=== PATIENT | male | born 1940 | race Caucasian/White ===

== ENCOUNTER 2020-12-17 08:56 | Inpatient (IN) | payer OTHER ==
--- OUTSIDE RECORDS SUMMARY | 2020-12-17 09:02 | XMS REPORT | Continuity of Care Document ---
:1940 Author Organization [facility] t Address [address] [place] [address] Care Team Providers Name Role Phone Unavailable Unavailable Unavailable Problems This patient has no known problems. Allergies, Adverse Reactions, Alerts This patient has no known allergies or adverse reactions. Medications Ordered Filled Start Stop Current Ordering Indication Dosage Frequency Signature Comments Components Source Medication Medication Date Date Medication? Clinician (SIG) Name Name Finasteride Finasteride 2019-0 2019- No Teodoro [address] [facility] Cyclobenzap Cyclobenzap Yes Teodoro [address] [facility] rine HCl rine HCl Lerner as needed [facility] Farxiga Farxiga Yes Teodoro [address] [facility] Simvastatin Simvastatin Yes Teodoro [address] [facility] in the [facility] evening [facility] Avalide Avalide Yes Teodoro [address] [facility] Norvasc Norvasc Yes Teodoro [address] [facility] Allopurinol Allopurinol Yes Teodoro TAKE [address] [facility]ner TABLET BY [facility]TH [facility] EVERY DAY. [facility] Tradjenta Tradjenta Yes Teodoro TAKE [address] [facility] TABLET BY [facility] EVERY DAY l [facility] Gabapentin Gabapentin Yes Teodoro [address] [facility] Metformin Metformin Yes Teodoro TAKE [address] HCl HCl [facility]ner TABLET BY [facility] TWICE A l DAY WITH Outpati FOOD ent Clinics Zolpidem Zolpidem Yes Teodoro [address] Tartrate Tartrate [facility] at bedtime [facility] as needed [facility] Metoprolol Metoprolol Yes Teodoro [address] [facility] Tartrate Tartrate [facility]ner with food [facility] Finasteride Finasteride Yes Teodoro [address] [facility] Allopurinol Allopurinol Yes Teodoro TAKE [address] [facility]ner TABLET BY [facility] EVERY DAY l [facility] Metformin Metformin Yes Teodoro [address] [facility] HCl HCl [facility] with meals [facility] Procedures This patient has no known procedures. Encounters Start End Encounter Admission Attending Care Care Encounter Source Date/Time Date/Time Type Type Clinicians Facility Department ID 2020-11-18 2020-11-18 Outpatient [facility] [id number] [facility] 2020-08-20 2020-08-20 Outpatient [facility] [id number] [facility] 2020-07-17 2020-07-17 [facility] [id number] [facility] 2020-05-20 2020-05-20 [facility] [id number] [facility] 2020-05-20 2020-05-20 [facility] [id number] [facility] 2020-02-17 2020-02-17 [facility] [id number] [facility] 14:00:00 14:00:00 Ship It Bag Check [facility] 2020-01-10 2020-01-10 [facility] [id number] [facility] 13:15:00 13:15:00 t Specialty/U [facility] - Specialty rology [facility]rology [facility] l Clinic Outpati ent Clinics 2019-11-18 2019-11-18 [facility] [id number] [facility] 14:00:00 14:00:00 t [facility] Medicine Outpati ent Clinics 2019-08-28 2019-08-28 [facility] [id number] [facility] 14:14:00 14:14:00 t Specialty/U Ying kes - Specialty rology [facility] /Urology Clinic l Clinic Outpati ent Clinics 2019-08-16 2019-08-16 [facility] [id number] [facility] 10:45:00 10:45:00 t [employer] [facility] Out[facility] Clin[facility] 2019-08-09 2019-08-09 [facility] [id number] [facility] 08:11:00 08:11:00 t [employer] [facility] 2019-07-11 2019-07-11 [facility] [id number] [facility] 13:15:00 13:15:00 t Specialty/U Ying kes - Specialty rology [facility] /Urology Clinic l Clinic Outpati ent Clinics 2019-05-15 2019-05-15 [facility] [id number] 14:30:00 14:30:00 t [employer] [facility] 2019 2019 [facility] [id number] [facility] 16:01:00 16:01:00 t Specialty/U Ying kes - Specialty rology [facility] /Urology Clinic l Clinic Outpati ent Clinics 2019-02-12 2019-02-12 [facility] [id number] [facility] 14:15:00 14:15:00 t [employer] [facility] Out[facility] Clin[facility] 2019-01-16 2019-01-16 [facility] [id number] 10[facility]30:00 10:30:00 t Specialty/U Ying kes - Specialty rology Mem[facility] a /Urology Clinic l Clinic Outpati ent Clinics 2019-01-09 2019-01-09 [facility] [id number] [address] 09:46:00 09:46:00 t [employer] [facility] Outpati ent Clinics 2018-11-20 2018-11-20 [facility] [id number] [facility] 14:47:00 14:47:00 t Specialty/U Ying kes - Specialty rology Memori a /Urology Clinic l Clinic Outpati ent Clinics 2018-11-13 2018-11-13 [facility] [id number] [facility] 13:30:00 13:30:00 t [employer] [facility] Outpati ent Clinics 2018-10-23 2018-10-23 [facility] [id number] 11:30:00 11:30:00 t Specialty/U Ying kes - Specialty rology Memori a /Urology Clinic l Clinic Outpati ent Clinics 2018-10-02 2018-10-02 [facility] [id number] [address] 09:19:00 09:19:00 t Specialty/U Ying kes - Specialty rology Memori a /Urology Clinic l Clinic Outpati ent Clinics 2018-09-21 2018-09-21 [facility] [id number] 12:42:00 12:42:00 t [employer] [facility] Outpati ent Clinics 2018-08-23 2018-08-23 [facility] [id number] [facility] 11:00:00 11:00:00 t Specialty/U Ying kes - Specialty rology Memori a /Urology Clinic l Clinic Outpati ent Clinics 2018-08-16 2018-08-16 [facility] [id number] 14:00:00 14:00:00 t [employer] [facility] Outpati ent Clinics 2018-05-16 2018-05-16 [facility] [id number] 14:45:00 14:45:00 t [employer] [facility] Out[facility] Clin[facility] 2018-03-15 2018-03-15 [facility] [id number] 14:45:00 14:45:00 t [email or web address] s - Drive [facility] Out[facility] Clin[facility] 2018-01-22 2018-01-22 [facility] [id number] 14:30:00 14:30:00 t [employer] s - Drive [facility] Clin[facility] 2017-11-14 2017-11-14 [facility] [id number] 14:07:00 14:07:00 t [employer] s - Drive [facility] Out[facility] Clin[facility] 2017-11-09 2017-11-09 [facility] [id number] 16:11:00 16:11:00 t [employer] s - [employer]CK[employer] [facility] Out[facility] Clin[facility] 2017-11-06 2017-11-06 [facility] [id number] 09:26:00 09:26:00 t [employer] s - Drive [facility] 2017-10-25 2017-10-25 [facility] [id number] 13:30:00 13:30:00 t [employer] s - Drive [facility] Results This patient has no known results.
--- NOTE | 2020-12-17 10:23 | RAD REPORT ---
EXAM DESCRIPTION: Salvador Pa And Lat (2 Views)12/17/2020 10:14 am CLINICAL HISTORY: Shortness of breath COMPARISON: 2010 FINDINGS: Moderate opacities mid to lower left lung. Mild to moderate opacities right lung Heart is normal size IMPRESSION: Bilateral pulmonary opacities probably pneumonia
[2020-12-17] MEDS ORDERED: Levofloxacin 750mg IV 750 MG/150 ML BAG IV ONE (11:05)
[2020-12-17 11:24] LABS: Absolute Lymphocytes (CBC) 0.7 K/uL (0.7-4.9); Basophils % 0.3 % (0-1.3); Lymphocytes % 5.7 % (15.3-44.8); MPV 9.2 fL (7.6-11.3); RBC Red Blood Cell Count 5.54 M/uL (4.33-5.43)
[2020-12-17 11:43] LABS: Potassium 3.5 mmol/L (3.5-5.1); Troponin (Emerg Dept Use Only) 0.04 ng/mL (0.0-0.045)
--- NOTE | 2020-12-17 12:52 | EDPHYS ---
Physician Documentation [facility] Name: Willem Ochoa Age: 80 yrs Sex: Male : 1940 Arrival Date: 12/17/2020 Time: 08:59 Bed 27 Private MD: Justina Lernerh ED Physician Jamar Fields HPI: 12/17 10:59 This 80 yrs old Male presents to ER via Wheelchair with complaints of rn Shortness Of Breath. 10:59 The patient has shortness of breath at rest, with light activity. Onset: The rn symptoms/episode began/occurred 2 day(s) ago. Duration: The symptoms are intermittent. The patient's shortness of breath is aggravated by nothing, is alleviated by nothing. Severity of symptoms: At their worst the symptoms were mild in the emergency department the symptoms are unchanged. The patient has not experienced similar symptoms in the past. The patient has been recently seen by a physician:. Sent by Dr. Loo, was going to have EGD done, noted to be hypoxic, 88% on RA, patient reports generalized weakness, fatigue, and mild sob. Sister COVID + and was around her on december 05, but tested neg for COVID prior to procedure. + clear/white sputum. NO hemoptysis. . Historical: - Allergies: 09:04 PENICILLINS; aa5 - PMHx: 09:04 Hypertension; Diabetes - NIDDM; aa5 - PSHx: 09:04 Heart stents; aa5 - Immunization history:: Adult Immunizations unknown. - Social history:: Smoking status: Patient denies any tobacco usage or history of. - Family history:: not pertinent. - Hospitalizations: : No recent hospitalization is reported. ROS: 10:59 Constitutional: Negative for fever, chills, and weight loss, Eyes: Negative for injury, rn pain, redness, and discharge, Neck: Negative for injury, pain, and swelling, Cardiovascular: Negative for chest pain, palpitations, and edema, Respiratory: Negative for wheezing, and pleuritic chest pain Abdomen/GI: Negative for abdominal pain, nausea, vomiting, diarrhea, and constipation, Back: Negative for injury and pain, : Negative for injury, bleeding, discharge, and swelling, MS/Extremity: Negative for injury and deformity, Skin: Negative for injury, rash, and discoloration, Neuro: Negative for headache, numbness, tingling, and seizure. Exam: 10:59 Constitutional: This is a well developed, well nourished patient who is awake, alert, rn and in no acute distress. Head/Face: Normocephalic, atraumatic. Eyes: Periorbital areas with no swelling, redness, or edema. ENT: No stridor Cardiovascular: Regular rate and rhythm. No pulse deficits. Respiratory: Mild tachypnea, no retractions Abdomen/GI: soft, non-tender Skin: Warm, dry MS/ Extremity: Pulses equal, no cyanosis. Neurovascular intact. Full, normal range of motion. Equal circumference. Neuro: Awake and alert, GCS 15 Vital Signs: 09:01 BP 122 / 66; Pulse 88; Resp 18 S; Temp 98.9(O); Pulse Ox 92% ; Weight 83.91 kg (R); aa5 Height 5 ft. 10 in. (177.80 cm) (R); Pain 0/10; 09:07 Pulse Ox 2 lpm NC; aa5 11:00 BP 127 / 65; Pulse 88; Resp 23; Pulse Ox 90% 3 lpm ; jl7 11:45 BP 125 / 69; Pulse 88; Resp 25 S; Pulse Ox 94% on 3 lpm NC; jl7 12:48 BP 125 / 71; Pulse 119; Resp 27; Pulse Ox 94% on 3 lpm NC; zb 13:15 BP 108 / 72; Pulse 90; Resp 28; Pulse Ox 92% on 3 lpm NC; zb 14:00 BP 131 / 73; Pulse 89; Resp 32; Pulse Ox 91% on 5 lpm NC; zb 15:30 BP 139 / 68; Pulse 97; Resp 32; Pulse Ox 90% on 5 lpm NC; zb 16:15 BP 132 / 76; Pulse 102; Resp 30; Pulse Ox 89% on 5 lpm NC; zb 17:22 BP 139 / 90; Pulse 102; Resp 33; Pulse Ox 89% on 7 lpm NC; zb 17:40 Pulse Ox 94% on 50% Venturi mask; zb 09:01 Body Mass Index 26.54 (83.91 kg, 177.80 cm) aa5 MDM: 10:36 Patient medically screened. rn 12:49 Differential diagnosis: Bronchitis Myocardial Infarction pneumonia, Pneumothorax rn pulmonary edema, Sepsis. Data reviewed: vital signs, nurses notes, lab test result(s), EKG, radiologic studies, plain films, and as a result, I will admit patient. Counseling: I had a detailed discussion with the patient and/or guardian regarding: the historical points, exam findings, and any diagnostic results supporting the discharge/admit diagnosis, lab results, radiology results, the need for further work-up and treatment in the hospital. Response to treatment: the patient's symptoms have mildly improved after treatment, and as a result, I will admit patient. Admission orders: after a detailed discussion of the patient's condition and case, the admit orders are written by me. ED course: Pt with bilateral pneumonia, and oxygen requirement, will admit to hospitalist service with IV abx. COVID pending.. 12/17 10:39 Order name: Blood Culture Adult (2) 12/17 10:39 Order name: BMP; Complete Time: 12:41 12/17 10:39 Order name: CBC with Diff; Complete Time: 12:41 12/17 10:39 Order name: NT PRO-BNP; Complete Time: 12:41 12/17 10:39 Order name: Troponin (emerg Dept Use Only); Complete Time: 12:41 12/17 10:39 Order name: Lactate; Complete Time: 12:41 12/17 10:39 Order name: Blood Culture [facility] 12/17 13:44 Order name: Comprehensive Metabolic Panel [facility] 12/17 13:44 Order name: Comprehensive Metabolic Panel [facility] 12/17 13:44 Order name: CBC with Automated Diff [facility] 12/17 13:44 Order name: CBC with Automated Diff [facility] 12/17 13:47 Order name: C-Reactive Protein [facility] 12/17 09:39 Order name: XRAY Chest Pa And Lat (2 Views); Complete Time: 10:37 12/17 10:39 Order name: EKG; Complete Time: 10:40 12/17 13:47 Order name: D-Dimer [facility] 12/17 13:47 Order name: Ferritin [facility] 12/17 13:59 Order name: SARS-COV-2 RT PCR; Complete Time: 14:01 [facility] 12/17 16:06 Order name: Lactate Sepsis 2 HR Follow-up [facility] 12/17 16:43 Order name: AST/SGOT [facility] 12/17 16:43 Order name: ALT/SGPT [facility] 12/17 19:05 Order name: Glucose, Ancillary Testing [facility] 12/18 08:19 Order name: CBC Smear Scan [facility] 12/18 12:08 Order name: Glucose, Ancillary Testing EDIN 12/18 12:13 Order name: Glucose, Ancillary Testing EDIN 12/18 12:51 Order name: US EDIN 12/18 17:12 Order name: Glucose, Ancillary Testing EDIN 12/17 10:39 Order name: Cardiac monitoring; Complete Time: 11:30 rn 12/17 10:39 Order name: EKG - Nurse/Tech; Complete Time: : rn 12/17 10:39 Order name: IV Saline Lock; Complete Time: : rn 12/17 10:39 Order name: Labs collected and sent; Complete Time: : rn 12/17 10:39 Order name: O2 Per Protocol; Complete Time: : rn 12/17 10:39 Order name: O2 Sat Monitoring; Complete Time: : rn 12/17 13:44 Order name: CONS Physician Consult EDIN 12/17 13:44 Order name: Consistent Carb (ADA) 1800 Shaggy EDIN Administered Medications: 11:30 Drug: LevaQUIN (levofloxacin) 750 mg Volume: 150 ml; Route: IVPB; Infused Over: 90 jl7 mins; Site: left hand; 13:00 Follow up: Response: No adverse reaction; IV Status: Completed infusion jl7 15:18 Drug: SOLU-Medrol (methylPrednisoLONE) 125 mg Route: IVP; Site: right antecubital; zb 17:21 Follow up: Response: No adverse reaction zb Disposition: 12/17/20 12:51 Hospitalization ordered by Familia Pacheco for Inpatient Admission. Preliminary diagnosis are Pneumonia, unspecified organism - Bilateral, COVID, Hypoxemia, Coronavirus infection, unspecified. - Bed requested for Intensive Care Unit. - Status is Inpatient Admission. jl7 - Condition is Stable. - Problem is new. - Symptoms have improved. Signatures: Dispatcher [employer] EDIN Lily Samuels RN RN dw Nieto, Roman, MD MD rn Calderon, Audri, RN RN aa5 Chava Arnold RN RN jl7 Hobbs, Yissel mt Brown, Berta, RN RN zb Corrections: (The following items were deleted from the chart) 13:03 10:40 CORONAVIRUS+MR.LAB.BRZ ordered. EDMS EDMS 14:08 12:51 Hospitalization Ordered by Familia Pacheco MD for Inpatient Admission. Preliminary mt diagnosis is Pneumonia, unspecified organism - Bilateral; Hypoxemia. Bed requested for Telemetry/MedSurg (Inpatient). Status is Inpatient Admission. Condition is Stable. Problem is new. Symptoms have improved. rn 14: 14:08 12/17/2020 12:51 Hospitalization Ordered by Familia Pacheco MD for Inpatient chemist internship. Preliminary diagnosis is Pneumonia, unspecified organism - Bilateral; Hypoxemia. Bed requested for [facility] ER HOLD. Status is Inpatient Admission. Condition is Stable. Problem is new. Symptoms have improved. mt 12/18 16:17 12/17 14:09 12/17/2020 12:51 Hospitalization Ordered by Familia Pacheco MD for Inpatient dw Admission. Preliminary diagnosis is Pneumonia, unspecified organism - Bilateral, COVID; Hypoxemia; Coronavirus infection, unspecified. Bed requested for Telemetry/MedSurg (Inpatient). Status is Inpatient Admission. Condition is Stable. Problem is new. Symptoms have improved. rn 12/18 17:19 16:17 12/17/2020 12:51 Hospitalization Ordered by Familia Pacheco MD for Inpatient jl7 Admission. Preliminary diagnosis is Pneumonia, unspecified organism - Bilateral, COVID; Hypoxemia; Coronavirus infection, unspecified. Bed requested for Intensive Care Unit. Status is Inpatient Admission. Condition is Stable. Problem is new. Symptoms have improved. dw
--- NOTE | 2020-12-17 12:52 | ER ---
Nurse's Notes [facility] Name: Willem Ochoa Age: 80 yrs Sex: Male : 1940 Arrival Date: 12/17/2020 Time: 08:59 Bed 27 Private MD: Teodoro Lerner Diagnosis: Pneumonia, unspecified organism-Bilateral, COVID;Hypoxemia;Coronavirus infection, unspecified Presentation: 12/17 09:01 Chief complaint: Patient states: "I was supposed to have a procedure for my esophagus aa5 this morning but they said they couldn't do it because my oxygen was low, they said it was like 90%". Pt states "I feel a little short of breath". Respirations are even and unlabored. Ebola Screen: Patient negative for fever greater than or equal to 101.5 degrees Fahrenheit, and additional compatible Ebola Virus Disease symptoms. Onset of symptoms was December 17, 2020. 09:01 Method Of Arrival: Wheelchair aa5 09:01 Coronavirus screen: Client denies travel out of the [place] in the last 14 days. aa5 09:01 Initial Sepsis Screen: Does the patient meet any 2 criteria? No. Patient's initial aa5 sepsis screen is negative. Does the patient have a suspected source of infection? No. Patient's initial sepsis screen is negative. Risk Assessment: Do you want to hurt yourself or someone else? Patient reports no desire to harm self or others. 09:01 Acuity: BENITA 3 aa5 Historical: - Allergies: 09:04 PENICILLINS; aa5 - PMHx: 09:04 Hypertension; Diabetes - NIDDM; aa5 - PSHx: 09:04 Heart stents; aa5 - Immunization history:: Adult Immunizations unknown. - Social history:: Smoking status: Patient denies any tobacco usage or history of. - Family history:: not pertinent. - Hospitalizations: : No recent hospitalization is reported. Screenin:00 Abuse screen: Denies threats or abuse. Denies injuries from another. Nutritional jl7 screening: No deficits noted. Tuberculosis screening: No symptoms or risk factors identified. Fall Risk IV access (20 points). Total Noriega Fall Scale indicates No Risk (0-24 pts). Assessment: 11:00 General: Appears in no apparent distress. uncomfortable, Behavior is calm, cooperative, jl7 appropriate for age. Pain: Denies pain. Neuro: Level of Consciousness is awake, alert, obeys commands, Oriented to person, place, time, situation. Cardiovascular: Denies chest pain, Rhythm is sinus rhythm with multifocal PVCs. Respiratory: Airway is patent Respiratory effort is even, labored, Respiratory pattern is symmetrical, tachypnea Breath sounds are clear bilaterally. Derm: Skin is pink, warm \\T\\ dry. 12:46 Reassessment: ECP at bedside discussing care with provider. zb 17:25 Reassessment: Patient appears in no apparent distress at this time. Patient and/or zb family updated on plan of care and expected duration. Pain level reassessed. Notified ECP patient stating 88-89 on 7L NC. patient denies worsening of SOB. RT called. 17:40 Reassessment: RT placed patient on ventri mask 50% oxygen. zb 19:50 Reassessment: Sondra (daughter) [phone]. ea Vital Signs: 09:01 BP 122 / 66; Pulse 88; Resp 18 S; Temp 98.9(O); Pulse Ox 92% ; Weight 83.91 kg (R); aa5 Height 5 ft. 10 in. (177.80 cm) (R); Pain 0/10; 09:07 Pulse Ox 2 lpm NC; aa5 11:00 BP 127 / 65; Pulse 88; Resp 23; Pulse Ox 90% 3 lpm ; jl7 11:45 BP 125 / 69; Pulse 88; Resp 25 S; Pulse Ox 94% on 3 lpm NC; jl7 12:48 BP 125 / 71; Pulse 119; Resp 27; Pulse Ox 94% on 3 lpm NC; zb 13:15 BP 108 / 72; Pulse 90; Resp 28; Pulse Ox 92% on 3 lpm NC; zb 14:00 BP 131 / 73; Pulse 89; Resp 32; Pulse Ox 91% on 5 lpm NC; zb 15:30 BP 139 / 68; Pulse 97; Resp 32; Pulse Ox 90% on 5 lpm NC; zb 16:15 BP 132 / 76; Pulse 102; Resp 30; Pulse Ox 89% on 5 lpm NC; zb 17:22 BP 139 / 90; Pulse 102; Resp 33; Pulse Ox 89% on 7 lpm NC; zb 17:40 Pulse Ox 94% on 50% Venturi mask; zb 09:01 Body Mass Index 26.54 (83.91 kg, 177.80 cm) aa5 ED Course: 08:59 Patient arrived in ED. as 09:00 Teodoro Lerner DO is Private Physician. as 09:01 Arm band placed on. aa5 09:07 Triage completed. aa5 10:11 XRAY Chest Pa And Lat (2 Views) In Process Unspecified. EDMS 10:36 Jamar Fields MD is Attending Physician. rn 10:40 Chava Arnold RN is Primary Nurse. jl7 11:00 Patient has correct armband on for positive identification. Placed in gown. Bed in low jl7 position. Call light in reach. Side rails up X 1. quality assurance monitor body on. Pulse ox on. NIBP on. Warm blanket given. 11:08 Inserted saline lock: 20 gauge in right antecubital area, using aseptic technique. jl7 Blood collected. 11:08 Initial lab(s) drawn, by me, sent to lab. First set of blood cultures drawn by me, EKG jl7 done, by ED staff, reviewed by Jamar Fields MD COVID swab sent to lab. 11:24 Second set of blood cultures drawn by me. Inserted saline lock: 22 gauge in left hand, jl7 using aseptic technique. Blood collected. 12:35 Primary Nurse role handed off by Chava Arnold RN zb 12:35 Berta Quigley RN is Primary Nurse. zb 12:50 Familia Pacheco MD is Hospitalizing Provider. rn 12/18 14:07 No provider procedures requiring assistance completed. Patient admitted, IV remains in jl7 place. intact, No redness/swelling at site. Administered Medications: 12/17 11:30 Drug: LevaQUIN (levofloxacin) 750 mg Volume: 150 ml; Route: IVPB; Infused Over: 90 jl7 mins; Site: left hand; 13:00 Follow up: Response: No adverse reaction; IV Status: Completed infusion jl7 15:18 Drug: SOLU-Medrol (methylPrednisoLONE) 125 mg Route: IVP; Site: right antecubital; zb 17:21 Follow up: Response: No adverse reaction zb Outcome: 12:51 Decision to Hospitalize by Provider. rn 17:33 Admitted to ER Hold. Please see [facility] for further documentation. zb 12/18 14:13 Condition: stable jl7 17:19 Patient left the ED. jl7 Signatures: Dispatcher [employer] Evonne Cantu Roman, MD MD rn Calderon, Tami, RN RN [id number] Chava Arnold RN NATHANIEL jl7 Marguerite Keita RN Berta Marti ea, RN RN zb Corrections: (The following items were deleted from the chart) 13:00 Response: No adverse reaction; IV Status: Completed infusion jl7 jl7
--- NOTE | 2020-12-17 13:31 | P.HP ---
Certification for Inpatient Patient admitted to: Inpatient With expected LOS: >2 Midnights Patient will require the following post-hospital care: None Practitioner: I am a practitioner with admitting privileges, knowledge of patient current condition, hospital course, and medical plan of care. Services: Services provided to patient in accordance with Admission requirements found in Title 42 Section 412.3 of the Code of Federal Regulations Patient History Date of Service: 12/17/20 Reason for admission: Hypoxia History of Present Illness: 80 yo male with past medical history hypertension, diabetes, CAD status post stents who was supposed to get an EGD done today by Dr. Loo found to have hypoxia on clinical examination and was sent over here for further management. The patient has cough with mucoid expectoration associated with shortness of breath which has been going on for the last 2-3 days. He had COVID test done on Monday which was negative, he was found to be hypoxic at 88% in room air .. Patient states that he has been feeling generalized weakness and has an episode of diarrhea 2 days back with mild shortness of breath. Had a COVID 19 exposure with sister who on December 05 Denies any fever or chills no nausea vomiting or diarrhea Patient was assessed in the ER and his vital signs were BP 122 / 66; Pulse 88; Resp 18 S; Temp 98.9(O); Pulse Ox 92% ; Weight 83.91 kg and was placed on oxygen support and was admitted for multifocal pneumonia. Allergies Penicillins Allergy (Verified 06/21/17 08:35) Rash Home medications list reviewed: Yes Home Medications: Amlodipine Besylate 5 mg PO [id number] 06/21/17 Aspirin [Aspirin EC 81 MG] 81 mg PO DAILY 06/21/17 Empagliflozin [Jardiance] 25 mg PO DAILY 06/21/17 Exenatide Microspheres [Bydureon Pen] 2 mg SQ EVERY 7TH DAY 06/21/17 Finasteride [Proscar*] 5 mg PO DAILY 06/21/17 Gabapentin [Gralise] 300 mg PO DAILY 06/21/17 Irbesartan/Hydrochlorothiazide [Avalide 300-12.5 mg Tablet] 1 each PO [id number] 06/21/17 Linagliptin [Tradjenta] 5 mg PO DAILY 06/21/17 Metformin HCl [Glucophage*] 500 mg PO [id number] 06/21/17 Metoprolol Succinate [Toprol Xl] 100 mg PO [id number] 06/21/17 Simvastatin 40 mg PO DAILY 06/21/17 Tramadol HCl [Ultram] 50 mg PO Q6HP PRN 06/21/17 Zolpidem Tartrate [Ambien*] 10 mg PO BEDTIME 06/21/17 allopurinoL [Zyloprim*] 300 mg PO DAILY 06/21/17 - Past Medical/Surgical History Past Medical History: Reviewed- Non-Contributory -: Diabetes -: Hypertension -: CAD Past Surgical History: Reviewed- Non-Contributory -: Stents - Family History Family History: Reviewed- Non-Contributory - Social History Smoking Status: Never smoker Review of Systems 10-point ROS is otherwise unremarkable General: Weakness, Malaise Respiratory: Cough, Shortness of Breath Gastrointestinal: Diarrhea Physical Examination - Vital Signs Temperature: 98.2 F Blood Pressure: 122/68 Pulse: 88 Respirations: 18 Pulse Ox (%): 92 - Physical Exam General: Alert, In no apparent distress, Oriented x3 HEENT: Atraumatic, Normocephalic Neck: Supple, 2+ carotid pulse no bruit Respiratory: Diminished, Crackles/rales Cardiovascular: Regular rate/rhythm, Normal S1 S2 Capillary refill: <2 Seconds Gastrointestinal: Soft and benign, W/out hepatosplenomegaly Musculoskeletal: No clubbing, No swelling Integumentary: No rashes Neurological: Normal speech, Normal strength at 5/5 x4 extr, Other (Alert Awake ) Lymphatics: No axilla or inguinal lymphadenopathy - Studies Laboratory Data (last 24 hrs) 12/17/20 11:08: WBC 12.30 H, Hgb 16.6, Hct 49.0, Plt Count 202 12/17/20 11:08: Sodium 136, Potassium 3.5, BUN 59 H, Creatinine 2.24 H, Glucose 167 H Imagings Data: Xray Chest : Bilateral pulmonary opacities probably pneumonia Assessment and Plan - Problems (Diagnosis) (1) Acute respiratory failure with hypoxia Current Visit: Yes Status: Acute Plan: Oxygen supplementation Will monitor closely under telemetry. Trying to wean down oxygen requirement will get a D-dimer and CRP and inflammatory markers Pulmonology consulted Start on steroids Bronchodilators COVID Test pending (2) Bilateral pneumonia Current Visit: Yes Status: Acute Plan: Monitor under telemetry will start on IV antibiotics antitussives COVID Test is pending Will get cultures (3) Acute kidney injury Current Visit: Yes Status: Acute Plan: Renal parameters monitored Will consult nephrology Electrolytes monitored and replaced accordingly (4) Diabetes Current Visit: Yes Status: Chronic Plan: Start on insulin sliding scale Will get an A1c Accu-Chek q. a.c. and HS Qualifiers: Diabetes mellitus complication status: with kidney complications (5) Hypertension Current Visit: Yes Status: Chronic Plan: Continue home medications and titrate as needed Monitor closely - Plan Leukocytosis Lactic acidosis history of CAD status post stents Continue home medications Trend lactic acid levels continue antibiotics GI/DVT prophylaxis Discharge Plan: Home Plan to discharge in: 48 Hours - Advance Directives Does patient have a Living Will: Yes Does patient have a Durable POA for Healthcare: Yes - Code Status/Comfort Care Code Status: Full Code Time Spent Managing Pts Care (In Minutes): 42
[2020-12-17] MEDS ORDERED: ACETAMINOPHEN 500 MG TAB PO PRN (13:40)
[2020-12-17] MEDS ORDERED: ONDANSETRON 4 MG/2 ML VIAL IV PRN (13:40)
[2020-12-17] MEDS ORDERED: ALBUTEROL 2.5 MG/3 ML NEB SOL NEB PRN (13:40)
[2020-12-17] MEDS: dexAMETHasone 10 MG/ML VIAL IV SCH (13:45)
[2020-12-17] MEDS ORDERED: METHYLPREDNISOLONE 125 MG INJ ONE (15:23)
[2020-12-17] MEDS: INSULIN -REGULAR HUMAN 50 UNIT/0.5 ML ML SQ SCH ×3 (16:30→21:00)
[2020-12-17 16:39] LABS: Ferritin 1037.2 ng/mL (26-388)
[2020-12-17 16:43] LABS: ALT/SGPT 37 U/L (12-78); AST/SGOT 62 U/L (15-37)
[2020-12-17] MEDS ORDERED: REMDESIVIR (EUA) 200 MG in NA CHLORIDE 0.9% 250 ML IV ONE (18:00)
[2020-12-17] MEDS ORDERED: dexAMETHasone 10 MG/ML VIAL ONE (19:21)
[2020-12-17] MEDS ORDERED: INSULIN -REGULAR HUMAN 50 UNIT/0.5 ML ML ONE (19:22)
[2020-12-18] MEDS: FAMOTIDINE 20 MG TAB PO SCH ×3 (00:15→20:46)
[2020-12-18] MEDS ORDERED: FAMOTIDINE 20 MG/2 ML VIAL IV ONE (01:13)
[2020-12-18] MEDS ORDERED: METOPROLOL TAR 25 MG TAB PO ONE (02:28)
[2020-12-18] MEDS ORDERED: METOPROLOL TAR 25 MG TAB ONE (02:58)
[2020-12-18 06:56] LABS: Absolute Lymphocytes (CBC) 0.5 K/uL (0.7-4.9); Basophils % 0.1 % (0-1.3); Hematocrit 45.9 % (39.6-49.0); Lymphocytes % 3.8 % (15.3-44.8); MPV 9.2 fL (7.6-11.3); RBC Red Blood Cell Count 5.19 M/uL (4.33-5.43)
[2020-12-18] MEDS: INSULIN -REGULAR HUMAN 50 UNIT/0.5 ML ML SQ SCH ×4 (07:30→20:47)
[2020-12-18 07:41] LABS: Albumin 2.4 g/dL (3.4-5.0); Bilirubin Total 0.7 mg/dL (0.2-1.0); Potassium 3.3 mmol/L (3.5-5.1); Protein, Total 7.2 g/dL (6.4-8.2)
[2020-12-18 08:19] LABS: Blood Morphology Comment NOT SEEN (NOT SEEN); Platelet Estimate ADEQ; White Blood Cell Scan OK (OK)
[2020-12-18] MEDS ORDERED: METOPROLOL XL 50 MG TAB PO ONE ×2 (08:47→08:50)
[2020-12-18] MEDS ORDERED: FAMOTIDINE 20 MG TAB ONE (08:47)
[2020-12-18] MEDS ORDERED: dexAMETHasone 10 MG/ML VIAL ONE (08:47)
[2020-12-18] MEDS: dexAMETHasone 10 MG/ML VIAL IV SCH (08:48)
[2020-12-18] MEDS ORDERED: ENOXAPARIN 30 MG/0.3 ML SQ ONE (08:48)
[2020-12-18] MEDS ORDERED: INSULIN -REGULAR HUMAN 50 UNIT/0.5 ML ML ONE ×3 (08:48→16:49)
[2020-12-18] MEDS ORDERED: Levofloxacin500mg IV 500 MG/100 ML BAG IV ONE (08:49)
[2020-12-18] MEDS: REMDESIVIR (EUA) 100 MG in NA CHLORIDE 0.9% 250 ML IV SCH (09:00)
[2020-12-18] MEDS ORDERED: Levofloxacin500mg IV 500 MG/100 ML BAG IV SCH (09:00)
[2020-12-18] MEDS ORDERED: PNEUMOCOCCAL VACCINE 0.5 ML IMVAC ONE (09:00)
[2020-12-18] MEDS ORDERED: ENOXAPARIN 30 MG/0.3 ML SQ SCH (09:00)
--- NOTE | 2020-12-18 11:26 | P.CNS ---
Date of Consult: 12/18/20 Reason for Consult: Respiratory failure from baig virus Chief Complaint: Hypoxia History of Present Illness: Patient is 80 years of age multiple medical problems including coronary artery disease as found to be hypoxic sent to OR and for diagnosed with baig virus pneumonia currently on high concentrations of oxygen the alert responsive Allergies Penicillins Allergy (Verified 06/21/17 08:35) Rash Home Medications: Amlodipine Besylate 5 mg PO [id number] 06/21/17 Aspirin [Aspirin EC 81 MG] 81 mg PO DAILY 06/21/17 Finasteride [Proscar*] 5 mg PO DAILY 06/21/17 Gabapentin [Gralise] 300 mg PO BID 06/21/17 Linagliptin [Tradjenta] 5 mg PO DAILY 06/21/17 Metformin HCl [Glucophage*] 500 mg PO BIDWM 06/21/17 Metoprolol Succinate [Toprol Xl] 100 mg PO [id number] 06/21/17 Simvastatin 40 mg PO DAILY 06/21/17 Zolpidem Tartrate [Ambien*] 10 mg PO BEDTIME 06/21/17 Allopurinol 100 mg PO DAILY 12/18/20 Valsartan/Hydrochlorothiazide [Valsartan-Hctz 320-12.5 mg Tab] 1 each PO DAILY 12/18/20 - Past Medical/Surgical History -: Diabetes -: Hypertension -: CAD -: Stents Review of Systems General: Weakness Respiratory: Shortness of Breath Physical Examination Temp Pulse Resp BP Pulse Ox 98.7 F 138 H 39 H 101/79 91 12/18/20 08:00 12/18/20 08:50 12/18/20 08:00 12/18/20 08:50 12/18/20 08:00 Laboratory Data (last 24 hrs) 12/17/20 11:08: WBC 12.30 H, Hgb 16.6, Hct 49.0, Plt Count 202 12/17/20 11:08: Sodium 136, Potassium 3.5, BUN 59 H, Creatinine 2.24 H, Glucose 167 H - Problems (1) Acute respiratory failure due to severe acute respiratory syndrome coronavirus 2 (SARS-CoV-2) infection Current Visit: Yes Status: Acute Plan: Patient is 80 years of age admitted with respiratory failure from baig virus he has cut diffuse bilateral interstitial changes oxygenation satisfactory continue to titrate down his O2 renal function is worse start on IV fluids increase the dose of steroids Dc IV antibiotics blood pressure is little low renal ultrasound low-dose aspirin
[2020-12-18] MEDS: NACHLORIDE 0.45% 1,000 ML IV SCH (12:00)
--- NOTE | 2020-12-18 12:50 | RAD REPORT ---
EXAM DESCRIPTION: US - Renal Ultrasound-Complete - 12/18/2020 12:36 pm CLINICAL HISTORY: Renal failure COMPARISON: Abdomen Exam Complete dated 11/14/2018 FINDINGS: The right kidney measures approximately 9.5 x 5.3 cm. The left kidney measures approximat medardo 9.2 x 4.9 cm. Renal cortical thickness and echogenicity are normal. No hydronephrosis or suspicio us renal mass. A 2.8 centimeter exophytic upper pole left renal cyst is present. There are small calc ifications of the parenchyma and carmen of each kidney. These are nonobstructive. No bladder wall thickening or mass. No intraluminal stone or mass. Enlarged lobulated prostate gland is present. IMPRESSION: No hydronephrosis or suspicious renal mass. No gross bladder abnormality seen. Enlarged lobulated prostate gland is present but only partially ev aluated.
[2020-12-18] MEDS ORDERED: NA CHLORIDE 0.9% 0 ML ONE (12:54)
[2020-12-18] MEDS: METHYLPREDNISOLONE 125 MG INJ IV SCH ×2 (14:00→20:46)
[2020-12-18] MEDS ORDERED: METHYLPREDNISOLONE 125 MG INJ ONE (14:48)
[2020-12-18] MEDS ORDERED: NACHLORIDE 0.45% 1,000 ML IV ONE (14:48)
[2020-12-18] MEDS ORDERED: ALBUTEROL 2.5 MG/3 ML NEB SOL NEB PRN (15:00)
[2020-12-18] MEDS: METFORMIN HCL 500 MG TAB PO SCH (18:11)
[2020-12-18] MEDS: GABAPENTIN 300 MG CAP PO SCH (20:46)
[2020-12-18] MEDS: ATORVASTATIN 20 MG TAB PO SCH (20:46)
[2020-12-18] MEDS ORDERED: ZOLPIDEM TARTRATE 10 MG TABLET PO SCH (21:00)
[2020-12-18] MEDS: APIXABAN 5 MG TABLET PO SCH (21:00)
[2020-12-18 22:18] LABS: Urine Appearance CLOUDY (Clear); Urine Bilirubin NEGATIVE (Negative); Urine Blood 1+ (Negative); Urine Color YELLOW (Yellow); Urine Glucose 3+ (Negative); Urine Protein 1+ (Negative); Urine Specific Gravity 1.025 (1.005-1.030)
[2020-12-18 22:58] LABS: Urine Microscopic Reflex ORDER UMIC
[2020-12-18 23:11] LABS: Urine Amorphous Sediment 1+ /HPF (NONE SEEN); Urine Bacteria >50 /HPF (NONE SEEN); Urine Mucus 3+ /HPF (NONE SEEN); Urine Yeast FEW (NONE SEEN)
[2020-12-18 23:12] LABS: Urine Coarse Granular Casts 0-5 /LPF (NONE SEEN)
[2020-12-19] MEDS: NACHLORIDE 0.45% 1,000 ML IV SCH (04:35)
[2020-12-19 05:18] LABS: Absolute Lymphocytes (CBC) 0.5 K/uL (0.7-4.9); Hematocrit 43.8 % (39.6-49.0); Lymphocytes % 2.8 % (15.3-44.8); MPV 9.4 fL (7.6-11.3); RBC Red Blood Cell Count 4.92 M/uL (4.33-5.43)
[2020-12-19 05:58] LABS: Ferritin 1253.7 ng/mL (26-388); Potassium 3.7 mmol/L (3.5-5.1)
[2020-12-19] MEDS ORDERED: METOPROLOL XL 100 MG TAB PO SCH ×2 (06:00)
[2020-12-19] MEDS ORDERED: AMLODIPINE 5 MG TAB PO SCH (06:00)
[2020-12-19] MEDS ORDERED: [UNRECOGNIZED DRUG - OTHER] PO SCH (09:00)
[2020-12-19] MEDS ORDERED: VALSARTAN PO SCH (09:00)
[2020-12-19] MEDS ORDERED: HYDROCHLOROTHIAZIDE PO SCH (09:00)
[2020-12-19] MEDS: Linagliptin [Tradjenta] 5 MG Tablet PO SCH (09:00)
[2020-12-19] MEDS ORDERED: HOME MED 1 EA UNK (Simvastatin [Simvastatin] 40 MG Tablet) PO SCH (09:00)
[2020-12-19] MEDS: APIXABAN 5 MG TABLET PO SCH ×2 (09:13→20:56)
[2020-12-19] MEDS: FAMOTIDINE 20 MG TAB PO SCH ×2 (09:13→21:00)
[2020-12-19] MEDS: INSULIN -REGULAR HUMAN 50 UNIT/0.5 ML ML SQ SCH ×4 (09:13→21:00)
[2020-12-19] MEDS: FINASTERIDE 5 MG TAB PO SCH (09:13)
[2020-12-19] MEDS: GABAPENTIN 300 MG CAP PO SCH (09:13)
[2020-12-19] MEDS: METFORMIN HCL 500 MG TAB PO SCH ×2 (09:13→17:43)
[2020-12-19] MEDS: ASPIRIN EC 81 MG TAB PO SCH (09:13)
[2020-12-19] MEDS: allopurinoL 100 MG TAB PO SCH (09:13)
[2020-12-19] MEDS: METHYLPREDNISOLONE 125 MG INJ IV SCH ×3 (09:14→21:00)
[2020-12-19] MEDS: REMDESIVIR (EUA) 100 MG in NA CHLORIDE 0.9% 250 ML IV SCH (09:15)
[2020-12-19] MEDS ORDERED: METOPROLOL TARTRATE 5 MG/5 ML INJ IV STA (09:23)
[2020-12-19] MEDS ORDERED: METOPROLOL TARTRATE 5 MG/5 ML INJ IV ONE (09:44)
--- NOTE | 2020-12-19 10:33 | P.PN ---
Subjective Date of Service: 12/19/20 Chief Complaint: Respiratory failure Patient's condition is worsening he is now on 100% FiO2 Review of Systems is unable to be obtained Physical Examination - Vital Signs Temperature: 97.4 F Blood Pressure: 125/71 Pulse: 139 Respirations: 24 Pulse Ox (%): 84 Assessment & Plan - Problems (Diagnosis) (1) Acute respiratory failure due to severe acute respiratory syndrome coronavirus 2 (SARS-CoV-2) infection Current Visit: Yes Status: Acute Plan: Respiratory failure patient started on IV Actemra condition is worse renal function no change with IV fluids will Dc IV fluids start tube feeds medications reviewed labs reviewed renal ultrasound no evidence of obstruction enlarged prostate
[2020-12-19] MEDS ORDERED: IVERMECTIN 3 MG TABLET PO ONE (10:37)
[2020-12-19] MEDS ORDERED: TOCILIZUMAB 800 MG in NA CHLORIDE 0.9% 60 ML IV ONE (13:00)
[2020-12-19] MEDS: ASCORBIC ACID 500 MG TABLET PO SCH ×2 (13:25→20:56)
--- NOTE | 2020-12-19 16:05 | RAD REPORT ---
EXAM DESCRIPTION: RAD - Abdomen 1 View (KUB) - 12/19/2020 3:59 pm CLINICAL HISTORY: Dobbhoff placement Pain COMPARISON: No comparisons FINDINGS: Tip of the enteric tube is in the distal stomach.
[2020-12-19] MEDS: METOPROLOL TARTRATE 5 MG/5 ML INJ IV SCH (17:44)
[2020-12-19] MEDS: ATORVASTATIN 20 MG TAB PO SCH (20:56)
[2020-12-19] MEDS: GLUCERNA 1.2 CAL 1,000 ML BOT FT SCH (21:00)
[2020-12-19] MEDS: THIAMINE 200 MG/2 ML INJ IVP SCH (21:00)
--- NOTE | 2020-12-20 01:04 | P.PN ---
Subjective Date of Service: 12/18/20 Patient's respiratory status is not really improving. Patient with bilateral infiltrates. Patient with significant hypoxemia as well. Continue with antiviral therapy. Continue IV steroids. Review of Systems 10-point ROS is otherwise unremarkable Physical Examination - Vital Signs Temperature: 97.1 F Blood Pressure: 119/83 Pulse: 78 Respirations: 30 Pulse Ox (%): 90 - Physical Exam General: Alert, In no apparent distress, Oriented x3 HEENT: Other (Remains on BiPAP) Respiratory: Diminished, Rhonchi/gurgles Cardiovascular: Regular rate/rhythm, Normal S1 S2, No murmurs Gastrointestinal: Normal bowel sounds, Soft and benign, Non-distended, No tenderness Musculoskeletal: No clubbing, No swelling, No tenderness Neurological: Sensation intact, Cranial nerves 3-12 intact - Studies Medications List Reviewed: Yes Assessment & Plan - Problems (Diagnosis) (1) Pneumonia due to COVID-19 virus Current Visit: Yes Status: Acute (2) Acute respiratory failure with hypoxia Current Visit: Yes Status: Acute (3) Diabetes Current Visit: Yes Status: Chronic Qualifiers: Diabetes mellitus complication status: with kidney complications (4) Hypertension Current Visit: Yes Status: Chronic - Plan 1. Continue with IV steroids and antiviral therapy 2. Monitor inflammatory markers 3. Repeat chest x-ray 4. Continue with BiPAP support 5. Pulmonary consultation 6. Continue with albuterol inhaler therapy; also supportive care; may add albuterol nebulizer therapy 7. Monitor LFTs 8. Continue with supportive care 9. GI and DVT prophylaxis Discharge Plan: Home Plan to discharge in: Greater than 2 days - Advance Directives Does patient have a Living Will: No Does patient have a Durable POA for Healthcare: Yes - Code Status/Comfort Care Code Status: Full Code Critical Care: Yes Time Spent Managing PTS Care (In Minutes): 35
--- NOTE | 2020-12-20 01:19 | P.PN ---
Date of Service: 12/19/20 Subjective Patient appears to be doing well and following commands. Patient's clinical symptoms are stable. Still requiring max oxygenation. Otherwise, clinical symptoms are stable. Remdesivir was stopped-renal function improving slowly and liver function is stable. Baseline creatinine is about 1.6. Patient was started on Actemra for COVID-19. Will discuss this with Pulmonary Review of Systems 10-point ROS is otherwise unremarkable Physical Examination - Vital Signs Reviewed - Physical Exam General: Alert, In no apparent distress, Oriented x3 HEENT: Remains with BiPAP mask Respiratory: Diminished, Rhonchi/gurgles Cardiovascular: Regular rate/rhythm, Normal S1 S2, No murmurs Gastrointestinal: Normal bowel sounds, Soft and benign, Non-distended, No tenderness Musculoskeletal: No clubbing, No swelling, No tenderness Neurological: Sensation intact, Cranial nerves 3-12 intact - Studies Medications List Reviewed: Yes Assessment & Plan - Problems (Diagnosis) (1) Pneumonia due to COVID-19 virus Current Visit: Yes Status: Acute (2) Acute respiratory failure with hypoxia Current Visit: Yes Status: Acute (3) Diabetes Current Visit: Yes Status: Chronic Qualifiers: Diabetes mellitus complication status: with kidney complications (4) Hypertension Current Visit: Yes Status: Chronic - Plan 1. Continue with IV steroids but antiviral therapy has been stopped 2. Monitor inflammatory markers; patient started on Actemra-discuss with Pulmon nikko 3. Repeat chest x-ray 4. Continue with BiPAP support 5. Pulmonary consultation completed 6. Continue with albuterol inhaler therapy; also supportive care; may need albuterol nebulizer therapy 7. Monitor LFTs 8. Continue with supportive care 9. GI and DVT prophylaxis Discharge Plan: Home Plan to discharge in: Greater than 2 days - Advance Directives Does patient have a Living Will: No Does patient have a Durable POA for Healthcare: Yes - Code Status/Comfort Care Code Status: Full Code Critical Care: Yes Time Spent Managing PTS Care (In Minutes): 35
--- NOTE | 2020-12-20 01:22 | P.PN ---
Date of Service: 12/20/20 Subjective Had a conversation with family; they were concerned that patient's antiviral therapy was stopped. He also had questions about using Actemra. Had a long conversation with them. Continue with current treatment and hopefully patient continues to improve. Patient w/ atrial fibrillation. On beta-brian therapy. Consulted cardiology. Echocardiogram pending Review of Systems 10-point ROS is otherwise unremarkable Physical Examination - Vital Signs Reviewed - Physical Exam General: Alert, In no apparent distress, Oriented x3 HEENT: Remains with BiPAP mask Respiratory: Diminished, Rhonchi/gurgles Cardiovascular: Regular rate/rhythm, Normal S1 S2, No murmurs Gastrointestinal: Normal bowel sounds, Soft and benign, Non-distended, No tenderness Musculoskeletal: No clubbing, No swelling, No tenderness Neurological: Sensation intact, Cranial nerves 3-12 intact - Studies Medications List Reviewed: Yes Assessment & Plan - Problems (Diagnosis) (1) Pneumonia due to COVID-19 virus Current Visit: Yes Status: Acute (2) Acute respiratory failure with hypoxia Current Visit: Yes Status: Acute (3) Diabetes Current Visit: Yes Status: Chronic Diabetes mellitus complication status: with kidney complications (4) Hypertension Current Visit: Yes Status: Chronic (5) Acute on CKD Current Visit: Yes Status: Acute - Plan Continue with plan of care as mentioned below: 1. Continue with IV steroids; restarted Remdesivir 2. Monitor inflammatory markers; patient given Actemra; 3. Repeat chest x-ray as needed 4. Continue with BiPAP support 5. Pulmonary consultation completed 6. Will continue with nebulizer therapy 7. Monitor LFTs 8. Continue with supportive care 9. GI and DVT prophylaxis Discharge Plan: Home Plan to discharge in: Greater than 2 days - Advance Directives Does patient have a Living Will: No Does patient have a Durable POA for Healthcare: Yes - Code Status/Comfort Care Code Status: Full Code Critical Care: Yes Time Spent Managing PTS Care (In Minutes): 35
[2020-12-20 04:26] LABS: Absolute Lymphocytes (CBC) 0.4 K/uL (0.7-4.9); Basophils % 0.1 % (0-1.3); Hematocrit 48.7 % (39.6-49.0); MPV 9.7 fL (7.6-11.3)
[2020-12-20 05:29] LABS: Ferritin 1421.2 ng/mL (26-388); Potassium 3.2 mmol/L (3.5-5.1)
[2020-12-20] MEDS: METOPROLOL TARTRATE 5 MG/5 ML INJ IV SCH ×5 (08:43→23:47)
[2020-12-20] MEDS: VITAMIN D 1000 UNIT TAB PO SCH (08:44)
[2020-12-20] MEDS: METHYLPREDNISOLONE 125 MG INJ IV SCH ×3 (08:44→20:45)
[2020-12-20] MEDS: THIAMINE 200 MG/2 ML INJ IVP SCH ×2 (08:44→20:45)
[2020-12-20] MEDS: FINASTERIDE 5 MG TAB PO SCH (08:45)
[2020-12-20] MEDS: FAMOTIDINE 20 MG TAB PO SCH ×2 (08:45→20:46)
[2020-12-20] MEDS: ZINC SULFATE 220 MG CAP PO SCH (08:46)
[2020-12-20] MEDS: allopurinoL 100 MG TAB PO SCH (08:46)
[2020-12-20] MEDS: APIXABAN 5 MG TABLET PO SCH ×2 (08:48→20:46)
[2020-12-20] MEDS: ASPIRIN EC 81 MG TAB PO SCH (08:48)
[2020-12-20] MEDS: METFORMIN HCL 500 MG TAB PO SCH ×2 (08:48→17:01)
[2020-12-20] MEDS: GLUCERNA 1.2 CAL 1,000 ML BOT FT SCH ×4 (08:50→21:00)
[2020-12-20] MEDS: Linagliptin [Tradjenta] 5 MG Tablet PO SCH (08:50)
[2020-12-20] MEDS: ASCORBIC ACID 500 MG TABLET PO SCH ×3 (08:51→20:46)
[2020-12-20] MEDS: INSULIN -REGULAR HUMAN 50 UNIT/0.5 ML ML SQ SCH ×4 (08:55→20:46)
[2020-12-20] MEDS ORDERED: FUROSEMIDE 20 MG/ 2ML VIAL IV ONE (10:26)
--- NOTE | 2020-12-20 13:47 | RAD REPORT ---
EXAM DESCRIPTION: [place] Single View12/20/2020 1:39 pm CLINICAL HISTORY: Shortness of breath COMPARISON: December 17 FINDINGS: Mild worsening in left and no significant change in right pulmonary opacities Heart is normal size. Feeding tube has its tip in the proximal stomach IMPRESSION: Mild worsening in left and no significant change right pulmonary opacities probably pneu monia
[2020-12-20] MEDS: REMDESIVIR (EUA) 100 MG in NA CHLORIDE 0.9% 250 ML IV SCH (14:21)
--- NOTE | 2020-12-20 15:34 | CON ---
Date of Consultation: 12/20/2020 Reason For Consultation: Atrial fibrillation with rapid ventricular response. History Of Present Illness: A 80-year-old male was admitted with COVID-19 related pneumonia, history of hypertension, diabetes, coronary artery disease. The patient has been maintained on BiPAP in the ICU. He was started on IV Lopressor and apparently heart rate went down significantly. It is runni ng around 90 to 105. Past Medical History: As outlined above in HPI. Medications: Refer to reconciliation sheet for detailed list. Allergies: PENICILLIN. Family History: No premature coronary artery disease. Social History: Does not smoke or drink. Does not use any drugs. Review of Systems: All systems reviewed and they were negative except for what is mentioned in the HPI. Physical Examination: Vital Signs: Temperature is 97.8, heart rate is around 101, breathing at 29, blood pressure is 122/8 6, saturating 100% on BiPAP. This is an elderly male, short of breath, on BiPAP. Head and Neck: Pupils are equal, reactive to light. No JVD. No cervical lymphadenopathy. Neck: Supple. Thyroid is not enlarged. Lungs: Rhonchi bilaterally. Heart: Irregularly irregular. No extra sounds. Abdomen: Soft and nontender. Bowel sounds positive. No organomegaly. No masses or hernia. No rig idity or rebound. Extremities: No clubbing, cyanosis. Intact pulses. Skin: No rash. Neurologic: Alert, awake. No focal deficits appreciated. Lymph Nodes: No cervical or axillary lymphadenopathy. Investigations: Sodium 142, creatinine is 2.18, glucose 168. BNP is 3535. BUN is 81, carbon dioxid e is 19, chloride 110, potassium is 3.2. C-reactive protein is 110. AST is 59, ALT 39. Assessment And Recommendations: Atrial fibrillation with rapid ventricular response. Agree with api xaban and if the patient is able to take medications by mouth, start on metoprolol 25 mg q.8 hours an d increase as the blood pressure tolerates. If continues to be in rapid response, then amiodarone IV over 24 hours will be recommended with 150 mg over 10 minutes and then 1 mg/minute for 6 hours and t hen 0.5 mg/minute for the remainder of the 24 hours. Please obtain echocardiogram. Thank you for the consult. /RUSTY Voice ID: [id number] Report ID: [id number]
[2020-12-20] MEDS: ATORVASTATIN 20 MG TAB PO SCH (20:45)
[2020-12-21 05:12] LABS: Absolute Lymphocytes (CBC) 0.4 K/uL (0.7-4.9); Basophils % 0.3 % (0-1.3); Hematocrit 46.1 % (39.6-49.0); Lymphocytes % 1.5 % (15.3-44.8); MPV 9.7 fL (7.6-11.3); RBC Red Blood Cell Count 5.27 M/uL (4.33-5.43)
[2020-12-21 05:38] LABS: C-Reactive Protein 64.1 mg/L (<3.00); Potassium 3.5 mmol/L (3.5-5.1)
[2020-12-21] MEDS: METOPROLOL TARTRATE 5 MG/5 ML INJ IV SCH ×4 (06:03→17:23)
[2020-12-21 06:15] VITALS: BMI 25.9
[2020-12-21 08:15] LABS: Blood Morphology Comment NOT SEEN (NOT SEEN); Platelet Estimate ADEQ
[2020-12-21] MEDS: GLUCERNA 1.2 CAL 1,000 ML BOT FT SCH (09:00)
[2020-12-21] MEDS: THIAMINE 200 MG/2 ML INJ IVP SCH ×2 (09:00→20:55)
[2020-12-21] MEDS: Linagliptin [Tradjenta] 5 MG Tablet PO SCH (09:00)
[2020-12-21] MEDS: VITAMIN D 1000 UNIT TAB PO SCH (09:32)
[2020-12-21] MEDS: METFORMIN HCL 500 MG TAB PO SCH (09:32)
[2020-12-21] MEDS: ZINC SULFATE 220 MG CAP PO SCH (09:32)
[2020-12-21] MEDS: ASPIRIN EC 81 MG TAB PO SCH (09:32)
[2020-12-21] MEDS: ASCORBIC ACID 500 MG TABLET PO SCH ×3 (09:32→20:55)
[2020-12-21] MEDS: FAMOTIDINE 20 MG TAB PO SCH ×2 (09:32→20:54)
[2020-12-21] MEDS: allopurinoL 100 MG TAB PO SCH (09:33)
[2020-12-21] MEDS: FINASTERIDE 5 MG TAB PO SCH (09:33)
[2020-12-21] MEDS: APIXABAN 5 MG TABLET PO SCH ×2 (09:33→20:53)
[2020-12-21] MEDS: METHYLPREDNISOLONE 125 MG INJ IV SCH ×3 (09:34→20:54)
[2020-12-21] MEDS: REMDESIVIR (EUA) 100 MG in NA CHLORIDE 0.9% 250 ML IV SCH (09:34)
[2020-12-21] MEDS: NACHLORIDE 0.45% 1,000 ML IV SCH ×2 (09:39→23:40)
[2020-12-21] MEDS: INSULIN -REGULAR HUMAN 50 UNIT/0.5 ML ML SQ SCH ×4 (09:41→23:40)
--- NOTE | 2020-12-21 12:26 | P.PN ---
Subjective Date of Service: 12/21/20 Chief Complaint: Respiratory failure Patient is not doing any better still requiring high concentrations of oxygen although he is alert Physical Examination - Vital Signs Temperature: 97.3 F Blood Pressure: 111/86 Pulse: 161 Respirations: 28 Pulse Ox (%): 94 - Physical Exam Respiratory: Diminished Cardiovascular: No edema - Studies Medications List Reviewed: Yes Assessment & Plan - Problems (Diagnosis) (1) Acute respiratory failure due to severe acute respiratory syndrome coronavirus 2 (SARS-CoV-2) infection Current Visit: Yes Status: Acute Plan: Respiratory failure status post IV Actemra patient is also receiving Remdismir. Check arterial blood gases repeat chest x-ray renal failure start on off normal saline renal ultrasound is negative white count elevated started patient on levofloxacin prognosis poor consider DNR
[2020-12-21] MEDS ORDERED: GLUCERNA 1.5 CAL 1,000 ML BOT RTH SCH (13:00)
[2020-12-21] MEDS ORDERED: GLUCERNA 1.5 CAL 1,000 ML BOT FT SCH (13:00)
[2020-12-21] MEDS: Levofloxacin 750mg IV 750 MG/150 ML BAG IV SCH (13:15)
--- NOTE | 2020-12-21 14:18 | ECHO ---
HEIGHT: 5 ft 10 in WEIGHT: 180 lb 0 oz DATE OF STUDY: 12/21/[address]: Warren Peñaloza MD 2-DIMENSIONAL: YES M.MODE: YES DOPPLER: YES COLOR FLOW: YES TDS: PORTABLE: YES DEFINITY: BUBBLE STUDY: DIAGNOSIS: CONGESTIVE HEART FAILURE CARDIAC HISTORY: CATHERIZATION: YES SURGERY: NO PROSTHETIC VALVE: NO PACEMAKER: NO MEASUREMENTS (cm) DIASTOLIC (NORMALS) SYSTOLIC (NORMALS) IVSd (0.6-1.2) LA Diam (1.9-4.0) LVEF >60% LVIDd (3.5-5.7) LVIDs (2.0-3.5) %FS % LVPWd (0.6-1.2) Ao Diam (2.0-3.7) 2 DIMENSIONAL ASSESSMENT: RIGHT ATRIUM: NORMAL LEFT ATRIUM: NORMAL RIGHT VENTRICLE: NORMAL LEFT VENTRICLE: NORMAL TRICUSPID VALVE: NORMAL MITRAL VALVE: NORMAL PULMONIC VALVE: NORMAL AORTIC VALVE: NORMAL PERICARDIAL EFFUSION: NONE AORTIC ROOT: NORMAL LEFT VENTRICULAR WALL MOTION: NORMAL DOPPLER/COLOR FLOW: MILD TRICUSPID REGURGITATION COMMENTS: NORMAL LEFT VENTRICULAR EJECTION FRACTION (HYPERDYNAMIC). EJECTION FRACTION >60%. NORMAL WALL MOTION. DIASTOLIC DYSFUNCTION. TECHNOLOGIST: CHARLIE BARKER
[2020-12-21 14:21] LABS: Arterial Blood Carboxyhemoglob 0.6 % (0-1.5); Blood Gas Oxyhemoglobin 92.4 % (94-97); Blood O2 Saturation 93.7 % (92-98.5)
[2020-12-21] MEDS ORDERED: D50W 25 GM/50 ML SYRINGE IV PRN (15:30)
[2020-12-21] MEDS ORDERED: GLUCAGON 1 MG/VIAL IM PRN (15:30)
--- NOTE | 2020-12-21 15:50 | P.PN ---
Subjective Date of Service: 12/21/20 Chief Complaint: Respiratory failure Subjective: Other (Patient stable. Currently on BiPAP at 100%.) Physical Examination - Vital Signs Temperature: 97.3 F Blood Pressure: 111/86 Pulse: 112 Respirations: 25 Pulse Ox (%): 95 - Studies Medications List Reviewed: Yes Assessment & Plan Discharge Plan: Home Physician Review Additional Text: Physical Exam: GENERAL: Patient clinically stable still on 100% FiO2 BiPAP. VITAL SIGNS: [Reviewed] HEENT: Neck supple. LUNGS: Currently on 100% BiPAP. HEART: A. fib rate slightly elevated ABDOMEN: [Soft, nontender, and nondistended. Positive bowel sounds. No hepatosplenomegaly was noted.] EXTREMITIES: [Without any cyanosis, clubbing, rash, lesions or peripheral edema.] NEUROLOGIC: [The patient is oriented to person, place and time. Strength and sensation are grossly intact. Face is symmetric.] SKIN: [Normal color, turgor and temperature. 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 Patient has received remdesivir and Acterma. Continue IV steroids and supplementation. Continue to wean off. Patient remains on Eliquis. Continue metoprolol. Patient on Lipitor. Will discontinue metoprolol due to current renal function. Will start low-dose Lantus. Continue insulin sliding scale. Will check A1c. Recheck chest x-ray tomorrow. Monitor Accu-Cheks. Will monitor closely. Will get physical therapy to assess ambulation. Will consult nephrology to further evaluate. Patient remains on half-normal saline. Await recommendations. Will discuss with family about plan of care. Code Status: [Full Code] DVT prophylaxis: Eliquis Advanced Care Planning-30 minutes: Patient remains full code. Continue to discuss plan of care with patient and family. Time Spent Managing Pts Care (In Minutes): 55
[2020-12-21] MEDS: INSULIN GLARGINE 100 UNITS/ML SQ SCH (20:53)
[2020-12-21] MEDS: ATORVASTATIN 20 MG TAB PO SCH (20:54)
[2020-12-21] MEDS: MORPHINE 2 MG/ML SYR IV PRN (20:55)
[2020-12-22] MEDS: MORPHINE 2 MG/ML SYR IV PRN (03:00)
[2020-12-22 05:06] LABS: Absolute Lymphocytes (CBC) 0.3 K/uL (0.7-4.9); Basophils % 0.4 % (0-1.3); Hematocrit 41.1 % (39.6-49.0); Lymphocytes % 1.3 % (15.3-44.8); MPV 9.8 fL (7.6-11.3); RBC Red Blood Cell Count 4.65 M/uL (4.33-5.43)
[2020-12-22 05:22] LABS: C-Reactive Protein 38.1 mg/L (<3.00); Ferritin 788.6 ng/mL (26-388); Potassium 3.4 mmol/L (3.5-5.1)
[2020-12-22] MEDS: INSULIN -REGULAR HUMAN 50 UNIT/0.5 ML ML SQ SCH ×3 (06:19→18:23)
[2020-12-22] MEDS ORDERED: METOPROLOL TAR 25 MG TAB PO SCH (07:29)
[2020-12-22] MEDS: VITAMIN D 1000 UNIT TAB PO SCH (08:09)
[2020-12-22] MEDS: ASCORBIC ACID 500 MG TABLET PO SCH ×3 (08:09→20:53)
[2020-12-22] MEDS: ASPIRIN EC 81 MG TAB PO SCH (08:09)
[2020-12-22] MEDS: APIXABAN 5 MG TABLET PO SCH ×2 (08:09→20:50)
[2020-12-22] MEDS: ZINC SULFATE 220 MG CAP PO SCH (08:09)
[2020-12-22] MEDS: FINASTERIDE 5 MG TAB PO SCH (08:09)
[2020-12-22] MEDS: FAMOTIDINE 20 MG TAB PO SCH ×2 (08:09→20:52)
[2020-12-22] MEDS: Linagliptin [Tradjenta] 5 MG Tablet PO SCH (08:10)
[2020-12-22] MEDS: allopurinoL 100 MG TAB PO SCH (08:10)
[2020-12-22] MEDS: THIAMINE 200 MG/2 ML INJ IVP SCH ×2 (08:10→20:53)
[2020-12-22] MEDS: METHYLPREDNISOLONE 125 MG INJ IV SCH ×3 (08:10→20:52)
--- NOTE | 2020-12-22 08:30 | P.PN ---
Subjective Date of Service: 12/22/20 Chief Complaint: Respiratory failure Subjective: Other (Currently on 100 % BIPAP) Physical Examination - Vital Signs Temperature: 97 F Blood Pressure: 98/76 Pulse: 141 Respirations: 25 Pulse Ox (%): 92 - Studies Medications List Reviewed: Yes Assessment & Plan Discharge Plan: Home Plan to discharge in: Greater than 2 days Physician Review Additional Text: Physical Exam: GENERAL: Patient clinically stable still on 100% FiO2 BiPAP. VITAL SIGNS: reviewed HEENT: Neck supple. LUNGS: Currently on 100% BiPAP. HEART: A. fib rate elevated, rate around 90-140s ABDOMEN: soft, nontender, and nondistended. Positive bowel sounds. No hepatosplenomegaly was noted. CEXTREMITIES: without any cyanosis, clubbing, rash, lesions or peripheral edema. NEUROLOGIC: the patient is oriented to person, place and time. Strength and sensation are grossly intact. Face is symmetric. SKIN: normal color, turgor and temperature. No ulcerations or rashes noted. 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 Patient still requiring 100% FiO2 on BiPAP. Inflammatory markers improved. Patient has received remdesivir and Acterma. Continue IV steroids and supplementation. Continue to try to wean off BiPAP. Patient remains in atrial fibrillation. Metoprolol was discontinued due to low blood pressure. Case discussed with cardiology. Will start amiodarone to help with his rapid ventricular rate. Continue nutrition through [facility]. Continue other medications. Lantus was initiated for his diabetes. Case discussed in detail with daughter. Advanced directives were addressed in detail yesterday. Patient remains DO NOT INTUBATE. If his condition continues to decline it appears patient would not want any further intervention. Will clarify with family if his condition declines. Atrial fibrillation with RVR: Metoprolol was discontinued due to low blood pressure. Case discussed with cardiology. We will start amiodarone drip. Patient remains on Eliquis. Hypertension: Metoprolol discontinued. Continue valsartan hydrochlorothiazide. Hyperlipidemia: Continue Lipitor Diabetes mellitus type 2: Lantus started for diabetic control. Metformin discontinued due to his current renal function. Sliding scale in place. CAD with prior stents: Continue aspirin. 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 Renal function slightly improved. Metoprolol was discontinued. Continue with current medications. Patient receiving IV fluids. BPH: Continue with current medication. Code Status: DNI DVT prophylaxis: Ike Advanced Care Planning-30 minutes: This was discussed in detail with family yesterday. Patient DO NOT INTUBATE. If the patient continues to decline it appears patient would not want significant intervention. We will continue to reassess and evaluate and clarify if his condition continues to decline. Time Spent Managing Pts Care (In Minutes): 55
--- NOTE | 2020-12-22 08:45 | P.PN ---
Subjective Date of Service: 12/22/20 Chief Complaint: Respiratory failure Patient is not doing any better still requiring high concentrations of oxygen although he is alert Review of Systems General: Weakness Respiratory: Shortness of Breath Physical Examination - Vital Signs Temperature: 97 F Blood Pressure: 98/76 Pulse: 141 Respirations: 25 Pulse Ox (%): 92 - Studies Medications List Reviewed: Yes Assessment & Plan - Problems (Diagnosis) (1) Acute respiratory failure due to severe acute respiratory syndrome coronavirus 2 (SARS-CoV-2) infection Current Visit: Yes Status: Acute Plan: Patient is improving he is alert although this requiring high concentrations of oxygen his ABGs the satisfactory an to titrate him down to a sat of 90% repeat blood gases patient is in AFib will be started on amiodarone drip labs reviewed renal function is improving white count is still elevated patient is on tube feeds medications reviewed Physician Review Additional Text: Physical Exam: GENERAL: Patient clinically stable still on 100% FiO2 BiPAP. VITAL SIGNS: reviewed HEENT: Neck supple. LUNGS: Currently on 100% BiPAP. HEART: A. fib rate elevated, rate around 90-140s ABDOMEN: soft, nontender, and nondistended. Positive bowel sounds. No hepatosplenomegaly was noted. CEXTREMITIES: without any cyanosis, clubbing, rash, lesions or peripheral edema. NEUROLOGIC: the patient is oriented to person, place and time. Strength and sensation are grossly intact. Face is symmetric. SKIN: normal color, turgor and temperature. No ulcerations or rashes noted. 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 Patient still requiring 100% FiO2 on BiPAP. Inflammatory markers improved. Patient has received remdesivir and Acterma. Continue IV steroids and supplementation. Continue to try to wean off BiPAP. Patient remains in atrial fibrillation. Metoprolol was discontinued due to low blood pressure. Case discussed with cardiology. Will start amiodarone to help with his rapid ventricular rate. Continue nutrition through [facility]. Continue other medications. Lantus was initiated for his diabetes. Case discussed in detail with daughter. Advanced directives were addressed in detail yesterday. Patient remains DO NOT INTUBATE. If his condition continues to decline it appears patient would not want any further intervention. Will clarify with family if his condition declines. Atrial fibrillation with RVR: Metoprolol was discontinued due to low blood pressure. Case discussed with cardiology. We will start amiodarone drip. Patient remains on Eliquis. Hypertension: Metoprolol discontinued. Continue valsartan hydrochlorothiazide. Hyperlipidemia: Continue Lipitor Diabetes mellitus type 2: Lantus started for diabetic control. Metformin discontinued due to his current renal function. Sliding scale in place. CAD with prior stents: Continue aspirin. 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 Renal function slightly improved. Metoprolol was discontinued. Continue with current medications. Patient receiving IV fluids. BPH: Continue with current medication. Code Status: DNI DVT prophylaxis: Eliquis Advanced Care Planning-30 minutes: This was discussed in detail with family yesterday. Patient DO NOT INTUBATE. If the patient continues to decline it appears patient would not want significant intervention. We will continue to reassess and evaluate and clarify if his condition continues to decline.
[2020-12-22] MEDS ORDERED: AMIODARONE HCL 900 MG in Dextrose 5%-Water 482 ML IV SCH (09:00)
[2020-12-22 11:02] LABS: Arterial Blood Carboxyhemoglob 0.7 % (0-1.5); Blood Gas Oxyhemoglobin 91.4 % (94-97)
--- NOTE | 2020-12-22 11:32 | RAD REPORT ---
EXAM DESCRIPTION: RAD CHEST SINGLE VIEW 12/22/20 COMPARISON: December 20, 2020 TECHNIQUE: Chest x-ray. FINDINGS: No significant change in the bilateral pulmonary opacities. The heart is normal in size. A feeding tube is coiled with its tip in the gastric fundus. IMPRESSION: No significant change in the bilateral pulmonary opacities.
[2020-12-22] MEDS: NACHLORIDE 0.45% 1,000 ML IV SCH (11:54)
[2020-12-22] MEDS ORDERED: DIGOXIN 0.25 MG/ML AMP IV SCH (12:00)
--- NOTE | 2020-12-22 14:24 | CON ---
History Of Present Illness: The patient is a 80-year-old male, currently having some respiratory dis tress and respiratory failure and atrial fibrillation. His heart rate is running around 141 this mor leonid, currently on my evaluation is about 127-130 on the monitor. His blood pressure was lower in th e morning at about 98/76, currently it is around in low 100 range for the systolic. His O2 sats are running in the low 90s. He is currently on BiPAP. His heart rate is irregularly irregular. He is a lert, able to nod his head to few things, but he does look uncomfortable with talking. He gets short of breath. He has had a face mask on with BiPAP going. He has also got an NG tube in. He has Gluc victor manuel going. He has antibiotics going in with dextrose 5 water. He has also got half-normal saline g oing in at 75 mL an hour. Unable to get much history from the patient as he is unable to provide muc h information given his current condition and the fact that he is on BiPAP. Given his low O2 sats, d o not want to take out the BiPAP and an attempt to talk to him. His sugars are running in about 170- 200 range for the most part. He has been on Levaquin. He has been on remdesivir. He has recently s tarted amiodarone. His metoprolol was stopped last night by myself because his blood pressure was ru nning in the 80 range. I agree with amiodarone and since it has just been started, hopefully that wi ll improve the heart rate given his atrial kick being lost due to atrial fibrillation as his heart ra te improves, cardiac output and blood pressure may also be improved with that. On evaluation of his vitals currently, as stated blood pressure is running in the low 100 range. His pulse is about 130. His respirations are around 20-25. His lungs are with few crackles bilaterally anteriorly. Abdomen is soft. Extremities reveal no edema bilaterally and heart sounds are irregularly irregular. Family History: Noncontributory at this point and unable to obtain from the patient in much detail. Medications: The patient's home medications are reviewed. The patient's current medications are rev iewed. Past Medical History: The patient has history of coronary artery disease. His echocardiogram does n ot reveal significant systolic failure, but he does seem to have some diastolic dysfunction. He has a history of coronary artery disease with stents, history of hypertension, and diabetes mellitus. Laboratory Data: Lab work reviewed. The patient is positive for coronavirus, suspected pneumonia bi lateral with coronavirus, currently on high oxygenation flows with BiPAP. His labs are reviewed. La bs show WBC count still quite elevated at 24.9, has gone up from 12.3 on December 17. Hemoglobin and he matocrit 14 and 41, his platelet count is 213. Chemistries show sodium 143 improved from 146 yesterd ay, potassium 3.4, chloride 113, bicarb 20, BUN 108, creatinine 2.14, improvement from BUN and creati nine yesterday of 111/2.34. His calcium is 8.5. His C-reactive protein has improved from 64 to 38. Assessment And Plan: 1.The patient overall seems to have improved. His CRP has gotten better. From the kidney point of view, he has acute kidney injury in the setting of coronavirus. At this point, his volume status see ms to be close to euvolemic. Agree with some gentle IV fluids, half-normal saline at 75 mL an hour. Recheck BMP tomorrow morning. His sodium has improved with water repletion and also with repletion of his fluids. His blood pressure seems to be reasonably stable, but perhaps on the lower side and t hat could also explain with his high heart rate. 2.Atrial fibrillation in the setting of euvolemia. No significant systolic dysfunction, but does se em to have some diastolic dysfunction, history of stents and coronary artery disease. Cardiology is on board. Obviously defer management of atrial fibrillation to them, but agree with starting amiodar one. At this point, amiodarone is stalled perhaps not kicked in fully. The patient's blood pressure s are reasonably stable, but the heart rate is still high. Even given his renal dysfunction, a digox in loading dose could be used, perhaps 2 small dosages to assist with getting his heart rate under be tter control if kindergarten paraprofessional agreed. I would not be recommending using digoxin on a regular basis or frequent basis, but a dose or even 2-3 dosages to sort of get him some improvement in his heart rate while amiodarone is kicking in may be a reasonable plan. We will discuss this also with Dr. Prezas to see if that could be something we can pursue. Cardiology is also on board and they could opine on this. 3.Volume status. At this point, volume status is reasonable. He is slightly perhaps on the dry xochitl e. We would agree with continued IV fluids gently at 75 mL an hour of half-normal saline. His sodiu m has improved at 143. I do not think we need to make a significant change that he is also getting G lucerna which is giving him some liquid and free water also. He is also getting some D5W with his me dications. At this point, continue to monitor the BMP with current IV fluids and medications. 4.Respiratory failure. Does not seem to be volume overloaded. Most of his respiratory failure seem s to be secondary to COVID and ICU monitoring, on treatment with steroids, on treatment status post r emdesivir. Also getting antibiotics. Continue to monitor closely. Appreciate your consultation. Darien Newsome will continue to follow this patient with you. Do not hesitate to call me if any concerns or questions on this patient. My cell number is [phone]. 35 minutes spent on patient direct ca re. /MODL Voice ID: [id number] Report ID: [id number]
[2020-12-22] MEDS: ATORVASTATIN 20 MG TAB PO SCH (20:50)
[2020-12-22] MEDS: INSULIN GLARGINE 100 UNITS/ML SQ SCH (20:50)
[2020-12-23] MEDS: NACHLORIDE 0.45% 1,000 ML IV SCH (01:15)
[2020-12-23] MEDS: INSULIN -REGULAR HUMAN 50 UNIT/0.5 ML ML SQ SCH ×4 (01:16→17:05)
[2020-12-23 05:03] LABS: Absolute Lymphocytes (CBC) 0.2 K/uL (0.7-4.9); Basophils % 0.1 % (0-1.3); Hematocrit 45.4 % (39.6-49.0); Lymphocytes % 0.8 % (15.3-44.8); MPV 9.6 fL (7.6-11.3); RBC Red Blood Cell Count 5.09 M/uL (4.33-5.43)
[2020-12-23 05:18] LABS: C-Reactive Protein 29.6 mg/L (<3.00); Ferritin 795.9 ng/mL (26-388); Magnesium 3.5 mg/dL (1.8-2.4); Potassium 3.9 mmol/L (3.5-5.1)
[2020-12-23 05:26] LABS: Blood Morphology Comment NOT SEEN (NOT SEEN); Platelet Estimate ADEQ
[2020-12-23] MEDS ORDERED: D5W 1,000 ML IV SCH (06:00)
[2020-12-23] MEDS: ASPIRIN EC 81 MG TAB PO SCH (07:04)
[2020-12-23] MEDS: METHYLPREDNISOLONE 125 MG INJ IV SCH ×3 (07:49→20:13)
[2020-12-23] MEDS: VITAMIN D 1000 UNIT TAB PO SCH (07:50)
[2020-12-23] MEDS: allopurinoL 100 MG TAB PO SCH (07:50)
[2020-12-23] MEDS: FINASTERIDE 5 MG TAB PO SCH (07:50)
[2020-12-23] MEDS: ZINC SULFATE 220 MG CAP PO SCH (07:50)
[2020-12-23] MEDS: ASCORBIC ACID 500 MG TABLET PO SCH (07:50)
[2020-12-23] MEDS: FAMOTIDINE 20 MG TAB PO SCH ×2 (07:50→20:13)
[2020-12-23] MEDS: Linagliptin [Tradjenta] 5 MG Tablet PO SCH (07:51)
[2020-12-23] MEDS: THIAMINE 200 MG/2 ML INJ IVP SCH ×2 (07:51→20:13)
[2020-12-23] MEDS: APIXABAN 5 MG TABLET PO SCH ×2 (07:51→20:12)
[2020-12-23] MEDS ORDERED: INSULIN GLARGINE 100 UNITS/ML SQ SCH ×2 (09:00→21:00)
[2020-12-23 09:37] LABS: Digoxin Level 0.4 ng/mL (0.80-2.00)
--- NOTE | 2020-12-23 09:48 | RAD REPORT ---
EXAM DESCRIPTION: RAD - Chest Single View - 12/23/2020 5:18 am CLINICAL HISTORY: REsp failure Chest pain. COMPARISON: Chest Single View dated 12/22/2020; Chest Single View dated 12/20/2020; Abdomen 1 View ([facility]) dated 12/19/2020; Chest Pa And Lat (2 Views) dated 12/17/2020 FINDINGS: Portable technique limits examination quality. There is moderate bilateral pulmonary opacities seen. This appears overall stable since prior study. The heart is normal in size. Enteric tube descends in coils in the stomach. IMPRESSION: Stable chest since comparative study dated 12/22/2020.
[2020-12-23] MEDS ORDERED: DIGOXIN 0.25 MG/ML AMP IV ONE (10:06)
[2020-12-23] MEDS: D5W 1,000 ML IV SCH (10:11)
--- NOTE | 2020-12-23 10:17 | P.PN ---
Date of Service: 12/23/20 Vital Signs Temp Pulse Resp BP Pulse Ox 97.0 F 105 H 25 H 138/70 92 12/23/20 04:00 12/23/20 04:00 12/23/20 04:00 12/23/20 04:00 12/23/20 04:00 Medications Acetaminophen (Acetaminophen 500 Mg Tab) 500 mg PO Q6H PRN PRN Reason: TEMP > 100' F Albuterol Sulfate (Albuterol 2.5 Mg/3 Ml Neb Urszula) 2.5 mg NEB [id number] PRN PRN Reason: SHORTNESS OF BREATH Allopurinol (Allopurinol 100 Mg Tab) 100 mg PO DAILY [facility] Last Admin: 12/23/20 07:50 Dose: 100 mg Documented by: Apixaban (Apixaban 5 Mg Tablet) 5 mg PO BID [facility] Last Admin: 12/23/20 07:51 Dose: 5 mg Documented by: Aspirin (Aspirin Ec 81 Mg Tab) 81 mg PO DAILY [facility] Last Admin: 12/23/20 07:04 Dose: Not Given Documented by: Atorvastatin Calcium (Atorvastatin 20 Mg Tab) 20 mg PO BEDTIME [facility] Last Admin: 12/22/20 20:50 Dose: 20 mg Documented by: Cholecalciferol (Vitamin D 1000 Unit Tab) 3,000 unit PO DAILY [facility] Last Admin: 12/23/20 07:50 Dose: 3,000 unit Documented by: Dextrose (D50w 25 Gm/50 Ml Syringe) 12.5 gm IV PRN PRN PRN Reason: HYPOGLYCEMIA Digoxin (Digoxin 0.25 Mg/Ml Amp) 0.5 mg IV 1X ONE Stop: 12/23/20 10:07 Enteral Nutritional Formula (Glucerna 1.5 Shaggy 1,000 Ml Bot) 0 ml RTH CONT [facility] Famotidine (Famotidine 20 Mg Tab) 20 mg PO BID [facility]; Protocol Last Admin: 12/23/20 07:50 Dose: 20 mg Documented by: Finasteride (Finasteride 5 Mg Tab) 5 mg PO DAILY [facility] Last Admin: 12/23/20 07:50 Dose: 5 mg Documented by: Glucagon (Glucagon 1 Mg/Vial) 1 mg IM 1X PRN PRN Reason: HYPOGLYCEMIA Home Med (Linagliptin [Tradjenta]) 5 mg PO DAILY [facility] Last Admin: 12/23/20 07:51 Dose: Not Given Documented by: Levofloxacin/Dextrose (Levaquin 750 Mg/150 Ml Ivpb (Premix)) 750 mg in 150 mls @ 150 mls/hr IV Q48H [facility]; Protocol Last Admin: 12/21/20 13:15 Dose: 150 mls Documented by: Amiodarone HCl 900 mg/ (Dextrose) 518 mls @ 16.5 mls/hr IV DAILY [facility] Last Admin: 12/23/20 09:00 Dose: 518 mls Documented by: Dextrose/Water (Dextrose In Water (1-Liter)) 1,000 mls @ 75 mls/hr IV .[id number] [facility] Insulin Glargine (Insulin Glargine 100 Units/Ml) 10 units SQ BID [facility] Last Admin: 12/23/20 07:50 Dose: 10 units Documented by: Insulin Human Regular (Insulin -Regular Human 50 Unit/0.5 Ml Ml) 0 unit SQ Q6H [facility]; Protocol Last Admin: 12/23/20 06:27 Dose: 11 unit Documented by: Methylprednisolone Sodium Succinate (Methylprednisolone 125 Mg Inj) 80 mg IV TID [facility] Last Admin: 12/23/20 07:49 Dose: 80 mg Documented by: Morphine Sulfate (Morphine 2 Mg/Ml Syr) 2 mg IV Q4H PRN PRN Reason: Pain scale 5-7 (Moderate) Last Admin: 12/22/20 03:00 Dose: 2 mg Documented by: Ondansetron HCl (Ondansetron 4 Mg/2 Ml Vial) 4 mg IV Q8H PRN PRN Reason: NAUSEA / VOMITING Last Admin: 12/20/20 11:32 Dose: 4 mg Documented by: Sodium Chloride (Flush Normal Saline 10 Ml) 10 ml IV BID [facility] Last Admin: 12/23/20 07:51 Dose: 10 ml Documented by: Thiamine HCl (Thiamine 200 Mg/2 Ml Inj) 200 mg IVP BID [facility] Last Admin: 12/23/20 07:51 Dose: 200 mg Documented by: Zinc Sulfate (Zinc Sulfate 220 Mg Cap) 220 mg PO DAILY [facility] Last Admin: 12/23/20 07:50 Dose: 220 mg Documented by: Microbiology Results 12/17/20 11:24 Blood - Blood Aerobic Blood Culture - Final No growth in 5 days. 12/17/20 11:24 Blood - Blood Anaerobic Blood Culture - Final No growth in 5 days. 12/17/20 11:08 Blood - Blood Aerobic Blood Culture - Final No growth in 5 days. 12/17/20 11:08 Blood - Blood Anaerobic Blood Culture - Final No growth in 5 days. Assessment/ Plan: Nephrology Seen and examined in the ICU Case reviewed with the nurse. Still with episodes of rapid afib Limited IH/ ROS due bipap No acute events overnight. Vitals, medications, blood work and imaging reviewed in the chart. NAD. NCAT. Neck supple. CTA. Irregular. Abd soft, NT. No C/C/E. Awake. Limited speech due to bipap. FABIÁN CKD III -Increase D5W Hypernatremia/ Dehydration -Increase D5W to 75ml/hr Hypokalemia Hypermagnesemia DM II with CKD -Continue Lantus BPH with LUTS -Continue Proscar Paroxysmal Afib -Give another dose of IV Digoxin due to a low level Acute hypoxic respiratory failure COVID-19 PNA -Continue Bipap -Continue steroids Greater than 30min patient care.
[2020-12-23] MEDS: Levofloxacin 750mg IV 750 MG/150 ML BAG IV SCH (11:30)
--- NOTE | 2020-12-23 12:14 | P.PN ---
Subjective Date of Service: 12/23/20 Chief Complaint: Respiratory failure Subjective: Improving, Doing well Physical Examination - Vital Signs Temperature: 97.0 F Blood Pressure: 138/70 Pulse: 105 Respirations: 25 Pulse Ox (%): 92 - Studies Microbiology Data (last 24 hrs): 12/17/20 11:24 Blood - Blood Aerobic Blood Culture - Final No growth in 5 days. 12/17/20 11:24 Blood - Blood Anaerobic Blood Culture - Final No growth in 5 days. 12/17/20 11:08 Blood - Blood Aerobic Blood Culture - Final No growth in 5 days. 12/17/20 11:08 Blood - Blood Anaerobic Blood Culture - Final No growth in 5 days. Medications List Reviewed: Yes Assessment & Plan Discharge Plan: LTAC Plan to discharge in: 48 Hours Physician Review Additional Text: Physical Exam: GENERAL: Patient clinically stable still on 100% FiO2 BiPAP. VITAL SIGNS: reviewed HEENT: Neck supple. LUNGS: Currently on 85% BiPAP. HEART: A. fib rate elevated, rate around 90-140s ABDOMEN: soft, nontender, and nondistended. Positive bowel sounds. No hepatosp lenomegaly was noted. CEXTREMITIES: without any cyanosis, clubbing, rash, lesions or peripheral edema. NEUROLOGIC: the patient is oriented to person, place and time. Strength and sensation are grossly intact. Face is symmetric. SKIN: normal color, turgor and temperature. No ulcerations or rashes noted. 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 Patient still requiring 100% FiO2 on BiPAP. Inflammatory markers improved. Patient has received remdesivir and Acterma. Continue IV steroids and supplementation. Continue to try to wean off BiPAP. Patient remains in atrial fibrillation. Metoprolol was discontinued due to low blood pressure. Case discussed with cardiology. Will start amiodarone to help with his rapid ventricular rate. Continue nutrition through [facility]. Continue other medications. Lantus was initiated for his diabetes. Case discussed in detail with daughter. Advanced directives were addressed in detail yesterday. Patient remains DO NOT INTUBATE. If his condition continues to decline it appears patient would not want any further intervention. Will clarify with family if his condition declines. Atrial fibrillation with RVR: Metoprolol was discontinued due to low blood pressure. Case discussed with cardiology. We will start amiodarone drip. Patient remains on Eliquis. Hypertension: Metoprolol discontinued. Continue valsartan hydrochlorothiazide. Hyperlipidemia: Continue Lipitor Diabetes mellitus type 2: Lantus started for diabetic control. Metformin discontinued due to his current renal function. Sliding scale in place. CAD with prior stents: Continue aspirin. 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 Renal function slightly improved. Metoprolol was discontinued. Continue with current medications. Patient receiving IV fluids. BPH: Continue with current medication. Code Status: DNI DVT prophylaxis: Eliquis Advanced Care Planning-30 minutes: This was discussed in detail with family yesterday. Patient DO NOT INTUBATE. If the patient continues to decline it appears patient would not want significa nt intervention. We will continue to reassess and evaluate and clarify if his condition continues to decline.
--- NOTE | 2020-12-23 12:26 | P.PN ---
Subjective Date of Service: 12/23/20 Chief Complaint: Respiratory failure Patient is improving oxygen requirements declining is very alert responsive cooperative Review of Systems Respiratory: Shortness of Breath Physical Examination - Vital Signs Temperature: 97.0 F Blood Pressure: 138/70 Pulse: 105 Respirations: 25 Pulse Ox (%): 92 - Studies Microbiology Data (last 24 hrs): 12/17/20 11:24 Blood - Blood Aerobic Blood Culture - Final No growth in 5 days. 12/17/20 11:24 Blood - Blood Anaerobic Blood Culture - Final No growth in 5 days. 12/17/20 11:08 Blood - Blood Aerobic Blood Culture - Final No growth in 5 days. 12/17/20 11:08 Blood - Blood Anaerobic Blood Culture - Final No growth in 5 days. Medications List Reviewed: Yes Assessment & Plan - Problems (Diagnosis) (1) Acute respiratory failure due to severe acute respiratory syndrome coronavirus 2 (SARS-CoV-2) infection Current Visit: Yes Status: Acute Plan: Respiratory failure patient is improving oxygen requirements declining appears to have renal failure nephrology consultation white count still elevated blood gases reviewed continue titrate O2 down to sat of 90% patient is on IV amiodarone possible improvement on the x-ray tolerating tube feeds patient is on D5 water change to p.o. levofloxacin blood pressure stable
--- NOTE | 2020-12-23 12:35 | RAD REPORT ---
EXAM DESCRIPTION: RAD - Abdomen 1 View ([facility]) - 12/23/2020 10:21 am CLINICAL HISTORY: [facility] placement Pain COMPARISON: Abdomen 1 View ([facility]) dated 12/19/2020 FINDINGS: Tip of the enteric tube is in the region of distal stomach.
--- NOTE | 2020-12-23 12:43 | P.PN ---
Subjective Date of Service: 12/23/20 Chief Complaint: Respiratory failure Subjective: Improving Physical Examination - Vital Signs Temperature: 97.0 F Blood Pressure: 138/70 Pulse: 105 Respirations: 25 Pulse Ox (%): 92 - Studies Microbiology Data (last 24 hrs): 12/17/20 11:24 Blood - Blood Aerobic Blood Culture - Final No growth in 5 days. 12/17/20 11:24 Blood - Blood Anaerobic Blood Culture - Final No growth in 5 days. 12/17/20 11:08 Blood - Blood Aerobic Blood Culture - Final No growth in 5 days. 12/17/20 11:08 Blood - Blood Anaerobic Blood Culture - Final No growth in 5 days. Medications List Reviewed: Yes Assessment & Plan Discharge Plan: LTAC Plan to discharge in: 48 Hours Physician Review Additional Text: Physical Exam: GENERAL: Patient clinically stable now on 85% FiO2 BiPAP. VITAL SIGNS: reviewed HEENT: Neck supple. LUNGS: Currently on 85% BiPAP. HEART: A. fib better rate controlled. Now in and out of atrial fibrillation ABDOMEN: soft, nontender, and nondistended. Positive bowel sounds. No hepatosplenomegaly was noted. CEXTREMITIES: without any cyanosis, clubbing, rash, lesions or peripheral edema. NEUROLOGIC: the patient is oriented to person, place and time. Strength and sensation are grossly intact. Face is symmetric. SKIN: normal color, turgor and temperature. No ulcerations or rashes noted. 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 Now on 85% FiO2 of BiPAP. Inflammatory markers overall improved. Patient has received remdesivir and Acterma. Continue IV steroids and supplementation. Continue antibiotic therapy. A. fib now better rate controlled. Continue to adjust Lantus. Case discussed with pulmonology, nephrology and cardiology. Case also discussed with daughter. Patient would benefit highly with long-term acute care facility placement. Family agrees. Will talk to social media marketing analyst to help arrange. Atrial fibrillation with RVR: Patient has improved with amiodarone. Case discussed with cardiology. Patient remains on Eliquis Hypertension: Continue valsartan hydrochlorothiazide. Hyperlipidemia: Continue Lipitor Diabetes mellitus type 2: Continue to adjust Lantus for better diabetic control. Metformin discontinued due to his current renal function. Sliding scale in place. CAD with prior stents: Continue aspirin. 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 Continue to adjust IV fluids BPH: Continue with current medication. Code Status: DNI DVT prophylaxis: Ike Advanced Care Planning-30 minutes: Case discussed with family. Family agrees with long-term acute care facility placement. Social work to help arrange. Time Spent Managing Pts Care (In Minutes): 55
[2020-12-23] MEDS: MORPHINE 2 MG/ML SYR IV PRN ×2 (13:22→17:37)
[2020-12-23] MEDS ORDERED: D50W 25 GM/50 ML VIAL IV PRN (15:00)
[2020-12-23] MEDS: ATORVASTATIN 20 MG TAB PO SCH (20:13)
[2020-12-24] MEDS: D5W 1,000 ML IV SCH (01:18)
[2020-12-24] MEDS: INSULIN -REGULAR HUMAN 50 UNIT/0.5 ML ML SQ SCH ×5 (01:19→17:42)
[2020-12-24 05:46] LABS: Absolute Lymphocytes (CBC) 0.3 K/uL (0.7-4.9); Basophils % 0.2 % (0-1.3); Hematocrit 42.5 % (39.6-49.0); Lymphocytes % 0.9 % (15.3-44.8); MPV 10.2 fL (7.6-11.3); RBC Red Blood Cell Count 4.53 M/uL (4.33-5.43)
[2020-12-24] MEDS: Linagliptin [Tradjenta] 5 MG Tablet PO SCH (07:25)
[2020-12-24] MEDS: MORPHINE 2 MG/ML SYR IV PRN ×3 (07:34→16:00)
[2020-12-24] MEDS ORDERED: LORazepam 2 MG/ML VIAL IV PRN (08:04)
--- NOTE | 2020-12-24 08:22 | P.PN ---
Subjective Date of Service: 12/24/20 Chief Complaint: Respiratory failure Subjective: Other (Patient appears clinically stable. Some agitation last night.) Physical Examination - Vital Signs Temperature: 98.0 F Blood Pressure: 142/87 Pulse: 116 Respirations: 29 Pulse Ox (%): 93 - Studies Medications List Reviewed: Yes Assessment & Plan Discharge Plan: LTAC Plan to discharge in: Greater than 2 days Physician Review Additional Text: Physical Exam: GENERAL: Patient clinically stable. No significant agitation at this time. A. fib rate around 110. Currently on 100% [id number]. VITAL SIGNS: reviewed HEENT: Neck supple. LUNGS: Currently on 100% BiPAP. HEART: A. fib rate around 110. ABDOMEN: soft, nontender, and nondistended. Positive bowel sounds. No hepatosplenomegaly was noted. CEXTREMITIES: without any cyanosis, clubbing, rash, lesions or peripheral edema. NEUROLOGIC: Patient alert, oriented. Patient appropriate. SKIN: normal color, turgor and temperature. No ulcerations or rashes noted. 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 Will provide medication for agitation. Patient up to 100% FiO2 on BiPAP this morning. Await chest x-ray. Continue to follow inflammatory markers. Patient has received remdesivir and Acterma. Continue IV steroids and supplementation. Blood sugars elevated due to IV steroids and IV fluids. We will continue to adjust Lantus for better control. Await lab results to determine if need to change IV fluids. Will discuss with nephrology. Case discussed with pulmonology. Pulmonology feels patient still not significantly improved. Discussed in detail with family yesterday. If the patient continues to improve will recommend LTAC. This was discussed in detail with the patient. He seemed to agree. We will have family come in today to reassess and go over options of care. Will discuss advanced directives and plan of care. Atrial fibrillation with RVR: Overall stable. Currently on Eliquis. Continue amiodarone. Rate around 110. Hypertension: Continue blood pressure medication. Hyperlipidemia: Continue Lipitor Diabetes mellitus type 2: Continue to adjust Lantus for better diabetic control. Metformin discontinued due to his current renal function. Sliding scale in place. CAD with prior stents: Continue aspirin. 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 Await lab results today. Consider discontinuing IV fluids if renal function improved especially with hyperglycemia. Will discuss case with nephrology. BPH: Continue with current medication. Code Status: DNI DVT prophylaxis: Ike Advanced Care Planning-30 minutes: We will rediscuss with family again today. Patient remains DNI. Patient and family appear to agree to LTAC placement once more stable.. Time Spent Managing Pts Care (In Minutes): 55
[2020-12-24 08:28] LABS: C-Reactive Protein 16.6 mg/L (<3.00); Ferritin 1004.7 ng/mL (26-388); Magnesium 3.5 mg/dL (1.8-2.4); Phosphorus 2.4 mg/dL (2.5-4.9); Potassium 4.4 mmol/L (3.5-5.1); Uric Acid 10.2 mg/dL (3.5-7.2)
[2020-12-24] MEDS ORDERED: INSULIN GLARGINE 100 UNITS/ML SQ SCH (09:00)
[2020-12-24] MEDS ORDERED: levoFLOXacin 250 MG TAB PO SCH (09:00)
[2020-12-24] MEDS ORDERED: D5W 1,000 ML IV SCH ×2 (09:17→11:35)
[2020-12-24] MEDS: METHYLPREDNISOLONE 125 MG INJ IV SCH ×2 (09:45→14:00)
[2020-12-24] MEDS: THIAMINE 200 MG/2 ML INJ IVP SCH (09:47)
[2020-12-24 11:25] LABS: Blood O2 Saturation 89.9 % (92-98.5)
[2020-12-24 11:26] LABS: Arterial Blood Carboxyhemoglob 0.9 % (0-1.5); Blood Gas Oxyhemoglobin 88.2 % (94-97)
[2020-12-24] MEDS: ASPIRIN EC 81 MG TAB PO SCH (11:49)
[2020-12-24] MEDS: APIXABAN 5 MG TABLET PO SCH (11:49)
[2020-12-24] MEDS: VITAMIN D 1000 UNIT TAB PO SCH (11:49)
[2020-12-24] MEDS: ZINC SULFATE 220 MG CAP PO SCH (11:49)
[2020-12-24] MEDS: allopurinoL 100 MG TAB PO SCH (11:50)
[2020-12-24] MEDS: FAMOTIDINE 20 MG TAB PO SCH (11:50)
[2020-12-24] MEDS: FINASTERIDE 5 MG TAB PO SCH (11:50)
[2020-12-24] MEDS: LORazepam 2 MG/ML VIAL IV PRN ×2 (13:50→17:02)
--- NOTE | 2020-12-24 16:20 | P.PN ---
Date of Service: 12/24/20 Vital Signs Temp Pulse Resp BP Pulse Ox 97.2 F 133 H 28 H 104/69 80 L 12/24/20 12:00 12/24/20 12:00 12/24/20 16:00 12/24/20 12:00 12/24/20 16:00 Medications Acetaminophen (Acetaminophen 500 Mg Tab) 500 mg PO Q6H PRN PRN Reason: TEMP > 100' F Albuterol Sulfate (Albuterol 2.5 Mg/3 Ml Neb Urszula) 2.5 mg NEB [id number] PRN PRN Reason: SHORTNESS OF BREATH Allopurinol (Allopurinol 100 Mg Tab) 100 mg PO DAILY [facility] Last Admin: 12/24/20 11:50 Dose: 100 mg Documented by: Apixaban (Apixaban 5 Mg Tablet) 5 mg PO BID [facility] Last Admin: 12/24/20 11:49 Dose: 5 mg Documented by: Aspirin (Aspirin Ec 81 Mg Tab) 81 mg PO DAILY [facility] Last Admin: 12/24/20 11:49 Dose: 81 mg Documented by: Atorvastatin Calcium (Atorvastatin 20 Mg Tab) 20 mg PO BEDTIME [facility] Last Admin: 12/23/20 20:13 Dose: 20 mg Documented by: Cholecalciferol (Vitamin D 1000 Unit Tab) 3,000 unit PO DAILY [facility] Last Admin: 12/24/20 11:49 Dose: 3,000 unit Documented by: Dextrose (D50w 25 Gm/50 Ml Vial) 12.5 gm IV PRN PRN PRN Reason: HYPOGLYCEMIA Enteral Nutritional Formula (Glucerna 1.5 Shaggy 1,000 Ml Bot) 0 ml RTH CONT [facility] Famotidine (Famotidine 20 Mg Tab) 20 mg PO BID [facility]; Protocol Last Admin: 12/24/20 11:50 Dose: 20 mg Documented by: Finasteride (Finasteride 5 Mg Tab) 5 mg PO DAILY [facility] Last Admin: 12/24/20 11:50 Dose: 5 mg Documented by: Glucagon (Glucagon 1 Mg/Vial) 1 mg IM 1X PRN PRN Reason: HYPOGLYCEMIA Home Med (Linagliptin [Tradjenta]) 5 mg PO DAILY [facility] Last Admin: 12/24/20 07:25 Dose: Not Given Documented by: Amiodarone HCl 900 mg/ (Dextrose) 518 mls @ 16.5 mls/hr IV DAILY [facility] Last Admin: 12/24/20 09:00 Dose: Not Given Documented by: Dextrose/Water (Dextrose In Water (1-Liter)) 1,000 mls @ 50 mls/hr IV .Q20H [facility] Last Admin: 12/24/20 11:35 Dose: Not Given Documented by: Insulin Glargine (Insulin Glargine 100 Units/Ml) 20 units SQ BID [facility] Last Admin: 12/24/20 09:46 Dose: 20 units Documented by: Insulin Human Regular (Insulin -Regular Human 50 Unit/0.5 Ml Ml) 0 unit SQ Q6HR [facility]; Protocol Last Admin: 12/24/20 12:00 Dose: 14 unit Documented by: Levofloxacin (Levofloxacin 250 Mg Tab) 250 mg PO DAILY [facility]; Protocol Last Admin: 12/24/20 11:50 Dose: 250 mg Documented by: Lorazepam (Lorazepam 2 Mg/Ml Vial) 2 mg IV Q2H PRN PRN Reason: SEDATION Last Admin: 12/24/20 13:50 Dose: 2 mg Documented by: Methylprednisolone Sodium Succinate (Methylprednisolone 125 Mg Inj) 80 mg IV TID [facility] Last Admin: 12/24/20 14:00 Dose: Not Given Documented by: Morphine Sulfate (Morphine 2 Mg/Ml Syr) 2 mg IV Q2H PRN PRN Reason: Comfort Measures Last Admin: 12/24/20 16:00 Dose: 2 mg Documented by: Ondansetron HCl (Ondansetron 4 Mg/2 Ml Vial) 4 mg IV Q8H PRN PRN Reason: NAUSEA / VOMITING Last Admin: 12/20/20 11:32 Dose: 4 mg Documented by: Sodium Chloride (Flush Normal Saline 10 Ml) 10 ml IV BID [facility] Last Admin: 12/24/20 09:47 Dose: 10 ml Documented by: Thiamine HCl (Thiamine 200 Mg/2 Ml Inj) 200 mg IVP BID [facility] Last Admin: 12/24/20 09:47 Dose: 200 mg Documented by: Zinc Sulfate (Zinc Sulfate 220 Mg Cap) 220 mg PO DAILY [facility] Last Admin: 12/24/20 11:49 Dose: 220 mg Documented by: Microbiology Results 12/17/20 11:24 Blood - Blood Aerobic Blood Culture - Final No growth in 5 days. 12/17/20 11:24 Blood - Blood Anaerobic Blood Culture - Final No growth in 5 days. 12/17/20 11:08 Blood - Blood Aerobic Blood Culture - Final No growth in 5 days. 12/17/20 11:08 Blood - Blood Anaerobic Blood Culture - Final No growth in 5 days. Assessment/ Plan: Nephrology Seen and examined in the ICU Case reviewed with the nurse. Still with episodes of rapid afib Limited IH/ ROS due to critical illness. Worsening respiratory status today. No acute events overnight. Vitals, medications, blood work and imaging reviewed in the chart. NAD. NCAT. Neck supple. CTA. Irregular. Abd soft, NT. No C/C/E. Awake. Limited speech due to bipap. FABIÁN CKD III -Decrease D5W due to hyperglycemia -Increase free water through NGT Hypernatremia/ Dehydration -Decrease D5W due to hyperglycemia -Increase free water through NGT Hypokalemia HyperPO4 -Maintain nutrition Hypermagnesemia DM II with CKD -Continue Lantus BPH with LUTS -Continue Proscar Paroxysmal Afib -Continue amiodarone Acute hypoxic respiratory failure COVID-19 PNA -Continue Bipap -Continue steroids Greater than 30min patient care. Case reviewed with Dr. Newsome
[2020-12-24 17:12] VITALS: TEMP 96.1
[2020-12-24 17:32] VITALS: O2SAT 81
[2020-12-24 18:39] VITALS: BP 48/33
--- NOTE | 2020-12-24 20:37 | P.DS ---
Admission Date: 12/17/20 Discharge Date: 12/24/20 Disposition: Discharge Condition: Reason for Admission: Respiratory failure Consultations: Cardiology:Dr. Cha Nephrology:Dr. Barrera Pulmonary:Dr. Fofana Procedures: Most recent chest x-ray CLINICAL HISTORY: REsp failure Chest pain. COMPARISON: Chest Single View dated 12/22/2020; Chest Single View dated 12/20/2020; Abdomen 1 View (KUB) dated 12/19/2020; Chest Pa And Lat (2 Views) dated 12/17/2020 FINDINGS: Portable technique limits examination quality. There is moderate bilateral pulmonary opacities seen. This appears overall stabl e since prior study. The heart is normal in size. Enteric tube descends in coils in the stomach. IMPRESSION: Stable chest since comparative study dated 12/22/2020 Most recent KUB EXAM DESCRIPTION: RAD - Abdomen 1 View ([facility]) - 12/23/2020 10:21 am CLINICAL HISTORY: [facility] placement Pain COMPARISON: Abdomen 1 View ([facility]) dated 12/19/2020 FINDINGS: Tip of the enteric tube is in the region of distal stomach. Renal ultrasound FINDINGS: The right kidney measures approximately 9.5 x 5.3 cm. The left kidney measures approximately 9.2 x 4.9 cm. Renal cortical thickness and echogenicity are normal. No hydronephrosis or suspicious renal mass. A 2.8 centimeter exophytic upper pole left renal cyst is present. There are small calcifications of the parenchyma and carmen of each kidney. These are nonobstructive. No bladder wall thickening or mass. No intraluminal stone or mass. Enlarged lobulated prostate gland is present. IMPRESSION: No hydronephrosis or suspicious renal mass. No gross bladder abnormality seen. Enlarged lobulated prostate gland is present but only partially evaluated. Dictated By: Kian Arora MD 12/18/20 1249 Signed By: Kian Arora MD 12/18/20 1250 Echocardiogram DOPPLER/COLOR FLOW: MILD TRICUSPID REGURGITATION COMMENTS: NORMAL LEFT VENTRICULAR EJECTION FRACTION (HYPERDYNAMIC). EJECTION FRACTION >60%. NORMAL WALL MOTION. 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 Patient was found to have COVID-19 pneumonia with hypoxic respiratory failure and was admitted for further evaluation and management. Hospital Course: Patient was admitted for [place] virus pneumonia with acute hypoxic respiratory failure, patient was on 100% FiO2 on BiPAP throughout much of his hospitalization, patient received remdecevir, Acterma, IV steroids, oral supplements without significant improvement. Case was discussed at length with family with pulmonology present, they wish for DNR and wished to withdraw care as well as his condition is very poor indeed not likely to recover. Today withdrawal of care was performed, BiPAP was removed from patient and he peacefully this evening. May he rest in peace. Vital Signs/Physical Exam: Temp Pulse Resp BP Pulse Ox 96.1 F L 103 H 20 48/33 L 79 L 12/24/20 16:00 12/24/20 18:00 12/24/20 18:00 12/24/20 18:00 12/24/20 18:00 General: Unresponsive HEENT: Other (Pupils fixed, dilated) Respiratory: Other (No spontaneous respiratory effort) Cardiovascular: Other (No palpable pulsus or heart sounds) Laboratory Data at Discharge: WBC 28.60 K/uL (4.3-10.9) H* 12/24/20 05:09 Hgb 13.6 g/dL (13.6-17.9) 12/24/20 05:09 Hct 42.5 % (39.6-49.0) 12/24/20 05:09 Plt Count 152 K/uL (152-406) D 12/24/20 05:09 Sodium 147 mmol/L (136-145) H 12/24/20 07:41 Potassium 4.4 mmol/L (3.5-5.1) 12/24/20 07:41 BUN 119 mg/dL (7-18) H 12/24/20 07:41 Creatinine 2.29 mg/dL (0.55-1.3) H 12/24/20 07:41 Glucose 525 mg/dL (74-106) H* 12/24/20 12:30 Uric Acid 10.2 mg/dL (3.5-7.2) H D 12/24/20 07:41 Phosphorus 2.4 mg/dL (2.5-4.9) L 12/24/20 07:41 Magnesium 3.5 mg/dL (1.8-2.4) H 12/24/20 07:41 Total Bilirubin 0.7 mg/dL (0.2-1.0) 12/18/20 06:32 AST 57 U/L (15-37) H 12/20/20 11:41 ALT 35 U/L (12-78) 12/20/20 11:41 Alkaline Phosphatase 69 U/L (45-117) 12/18/20 06:32 Home Medications: Amlodipine Besylate 5 mg PO [id number] 06/21/17 Aspirin [Aspirin EC 81 MG] 81 mg PO DAILY 06/21/17 Finasteride [Proscar*] 5 mg PO DAILY 06/21/17 Gabapentin [Gralise] 300 mg PO BID 06/21/17 Linagliptin [Tradjenta] 5 mg PO DAILY 06/21/17 Metformin HCl [Glucophage*] 500 mg PO BIDWM 06/21/17 Metoprolol Succinate [Toprol Xl] 100 mg PO [id number] 06/21/17 Simvastatin 40 mg PO DAILY 06/21/17 Zolpidem Tartrate [Ambien*] 10 mg PO BEDTIME 06/21/17 Allopurinol 100 mg PO DAILY 12/18/20 Valsartan/Hydrochlorothiazide [Valsartan-Hctz 320-12.5 mg Tab] 1 each PO DAILY 12/18/20 Physician Discharge Instructions: Rest in peace Followup: NONE,NONE [Primary Care Provider] - Time spent managing pt's care (in minutes): 20
--- NOTE | 2020-12-25 11:13 | P.PN ---
Subjective Date of Service: 12/24/20 Chief Complaint: Respiratory failure Patient's condition is worsening his becoming more hypoxic agitated oxygen support has been increased to 100% Review of Systems is unable to be obtained Physical Examination - Vital Signs Temperature: 96.1 F Blood Pressure: 48/33 Pulse: 103 Respirations: 20 Pulse Ox (%): 79 - Physical Exam General: Unresponsive Neck: Supple Respiratory: Clear to auscultation bilaterally, Diminished - Studies Medications List Reviewed: Yes Assessment & Plan - Problems (Diagnosis) (1) Acute respiratory failure due to severe acute respiratory syndrome coronavirus 2 (SARS-CoV-2) infection Status: Acute Plan: Respiratory failure from baig virus condition has worsened acquiring more oxygen blood gases show significant hypoxemia discuss with relatives in the 1 0 nerve patient's wishes to withdraw care from the ventilator due to his worsening condition despite maximum treatment with steroids white count remains elevated discuss with relatives
--- NOTE | 2020-12-27 12:53 | PN ---
Date of Progress Note: 12/21/2020 Subjective: Mr. Ochoa had been seen by Dr. Elliott for coronary artery disease, COVID pneumonia, diab etes, hypertension, atrial fibrillation. The patient was placed on Eliquis, beta-brian, IV amiodar one is being considered. Echocardiogram which was done, showed a normal ejection fraction, hyperdyna jada diastolic function, no effusion, and no thrombus. Continue present regimen. Nephrology and Pulm onology following as well. LOLLY/RUSTY Voice ID: [id number] Report ID: [id number]
== END 2020-12-24 19:10 | disposition expired | DRG 177 ==
LOC: ER 08:56 → ERHOLD 13:40 → 3RD-ICU 12-18 16:57
PROVIDERS: ADMIT Family Medicine; ATTEND Family Medicine
PROC: XW033E5 Introduction of Remdesivir Anti-infective into Peripheral Vein, Percutaneous Approach, New Technology Group 5 (ICD-10-PCS; principal; 2020-12-17)
PROC: 5A09557 Assistance with Respiratory Ventilation, Greater than 96 Consecutive Hours, Continuous Positive Airway Pressure (ICD-10-PCS; 2020-12-18)
DX: U07.1 COVID-19 (principal); J12.82 Pneumonia due to coronavirus disease 2019; J96.01 Acute respiratory failure with hypoxia; N17.9 Acute kidney failure, unspecified; N18.4 Chronic kidney disease, stage 4 (severe); E87.2 Acidosis; E87.0 Hyperosmolality and hypernatremia; I12.9 Hypertensive chronic kidney disease with stage 1 through stage 4 chronic kidney disease, or unspecified chronic kidney disease; E11.22 Type 2 diabetes mellitus with diabetic chronic kidney disease; D72.829 Elevated white blood cell count, unspecified; E78.5 Hyperlipidemia, unspecified; E86.0 Dehydration; E83.41 Hypermagnesemia; E87.6 Hypokalemia; I48.0 Paroxysmal atrial fibrillation; N40.1 Benign prostatic hyperplasia with lower urinary tract symptoms; E11.65 Type 2 diabetes mellitus with hyperglycemia; E83.39 Other disorders of phosphorus metabolism; N40.0 Benign prostatic hyperplasia without lower urinary tract symptoms; I25.10 Atherosclerotic heart disease of native coronary artery without angina pectoris; Z51.5 Encounter for palliative care; Z95.5 Presence of coronary angioplasty implant and graft; Z88.0 Allergy status to penicillin; Z79.82 Long term (current) use of aspirin; Z79.84 Long term (current) use of oral hypoglycemic drugs; Z79.899 Other long term (current) drug therapy
CPT/HCPCS: 36415; 71045; 71046; 74018; 76770; 80048; 80053; 80162; 81003; 81015; 82565; 82728; 82805; 82947; 83605; 83735; 83880; 84100; 84450; 84460; 84484; 84550; 85025; 85379; 86140; 87040; 87086; 87088; 93005; 93306; 94003; 94660; 94760; 96365; 96375; 99285; J0282; J1100; J1160; J1650; J1815; J2270; J2405; J2930; J3262; J3411; J7030; J7050; J7060; U0003